=== PATIENT | male | born 1965 | race Caucasian/White ===

== ENCOUNTER 2016-09-29 04:20 | Inpatient (IN) | payer BC ==
[2016-09-29] MEDS ORDERED: SODIUM CHLORIDE 0.9% 1,000 ML IV STA (04:37)
[2016-09-29] MEDS ORDERED: MORPHINE SULFATE 4 MG/ML SYRINGE IV STA ×2 (04:37→06:28)
--- NOTE | 2016-09-29 04:48 | ED ---
Abdominal Pain HPI - General Chief Complaint: Abdominal Pain Stated Complaint: Abdominal pain Time Seen by Provider: 09/29/16 04:34 Source: patient, family Mode of arrival: wheelchair Limitations: no limitations - History of Present Illness Initial Comments: Patient presents with abdominal pain and syncopal episodes. He has a history of gallbladder stones. He has had a couple episodes of sick a be today. Patient denies any fever, chills, chest pain. He has no back pain. His abdominal pain is in the epigastric area it does radiate to the back. He has no neck pain or stiffness. He has no change in vision or hearing. He has taken no medication for the symptoms. He has no lightheadedness or dizziness. He has known focal weakness. - Related Data Home Medications Medication Instructions Recorded Confirmed Aspirin [Adult Low Dose Aspirin EC] 81 mg PO 09/29/16 Atorvastatin [Lipitor] mg PO DAILY 09/29/16 Allergies Allergy/AdvReac Type Severity Reaction Status Date / Time No Known Allergies Allergy Verified 09/29/16 04:34 Review of Systems ROS Statement: Those systems with pertinent positive or pertinent negative responses have been documented in the HPI. ROS Other: All systems not noted in ROS Statement are negative. Past Medical History Past Medical History: Hyperlipidemia Additional Past Medical History / Comment(s): gallstones, History of Any Multi-Drug Resistant Organisms: None Reported Past Surgical History: No Surgical Hx Reported Past Psychological History: No Psychological Hx Reported Smoking Status: Never smoker Past Alcohol Use History: None Reported Past Drug Use History: None Reported General Exam Limitations: no limitations General appearance: alert, in no apparent distress Head exam: Present: atraumatic, normocephalic, normal inspection Eye exam: Present: normal appearance, PERRL, EOMI. Absent: scleral icterus, conjunctival injection, periorbital swelling ENT exam: Present: normal exam, mucous membranes moist Neck exam: Present: normal inspection. Absent: tenderness, meningismus, lymphadenopathy Respiratory exam: Present: normal lung sounds bilaterally. Absent: respiratory distress, wheezes, rales, rhonchi, stridor Cardiovascular Exam: Present: regular rate, normal rhythm, normal heart sounds. Absent: systolic murmur, diastolic murmur, rubs, gallop, clicks GI/Abdominal exam: Present: soft, tenderness. Absent: distended, guarding, rebound, rigid Extremities exam: Present: normal inspection, full ROM, normal capillary refill. Absent: tenderness, pedal edema, joint swelling, calf tenderness Back exam: Present: normal inspection Neurological exam: Present: alert, oriented X3, CN II-XII intact Psychiatric exam: Present: normal affect, normal mood Skin exam: Present: warm, dry, intact, normal color. Absent: rash Course Vital Signs 09/29/16 04:28 Temperature 98.1 F Pulse Rate 59 L Respiratory 16 Rate Blood Pressure 111/68 O2 Sat by Pulse 95 Oximetry Medical Decision Making - Medical Decision Making Patient complains of abdominal pain. He also has had a syncopal episode. He has a cardiac history. He will be admitted to the hospital. 09/29/16 04:47 Twelve-lead EKG is obtained, interpreted by me showing ventricular rate 49 bpm, normal ID interval and QRS complexes, no ST elevation or depression, interpreted by me as sinus bradycardia. Disposition Clinical Impression: Syncope Disposition: ADMITTED IP TO THIS [facility] Condition: Fair Referrals: Joss Loyola MD [Primary Care Provider] - 1-2 days
[2016-09-29] MEDS ORDERED: NALOXONE 0.4 MG/ML 1 ML VIAL IV PRN (04:49)
[2016-09-29 05:15] LABS: Aty Lym Flag Slight; CH 33.5; HCT 40.2 % (39.0-53.0); HDW 2.61; HGB 14.6 gm/dL (13.0-17.5); MCHC 36.4 g/dL (31.0-37.0); MCV 90.8 fL (80.0-100.0); Mean Platelet Volume 6.5; RBC 4.43 m/uL (4.30-5.90); RDW 12.1 % (11.5-15.5); WBC 8.9 k/uL (3.8-10.6); WBC (Perox) 8.79
[2016-09-29 05:22] LABS: Partial Thromboplastin Time 22.9 sec (22.0-30.0); Prothrombin Time 10.5 sec (9.0-12.0)
[2016-09-29 05:26] LABS: ALT 42 U/L (21-72); AST 24 U/L (17-59); Alcohol <10 mg/dL; Alkaline Phosphatase 86 U/L (38-126); Amylase 82 U/L (30-110); Anion Gap 12 mmol/L; Blood Urea Nitrogen 13 mg/dL (9-20); Calcium 9.2 mg/dL (8.4-10.2); Carbon Dioxide 23 mmol/L (22-30); Chloride 107 mmol/L (98-107); Glucose 138 mg/dL (74-99); Non-African American GFR(MDRD) >60 (>60 ml/min/1.73 sqM); Potassium 3.7 mmol/L (3.5-5.1); Sodium 142 mmol/L (137-145); Total Bilirubin 0.4 mg/dL (0.2-1.3); Total Protein 6.6 g/dL (6.3-8.2)
[2016-09-29] MEDS: SODIUM CHLORIDE 0.9% 1,000 ML IV SCH (06:21)
--- NOTE | 2016-09-29 06:36 | CT ---
EXAM: CT Head Without Intravenous Contrast CLINICAL HISTORY: Reason: Pain TECHNIQUE: Axial computed tomography images of the head/brain without intravenous contrast. Sagittal and coronal reformats were reviewed. CTDI is 60.30 mGy and DLP is 1072.30 mGy-cm. This CT exam was performed using one or more of the following dose reduction techniques: automated exposure control, adjustment of the mA and/or kV according to patient size, and/or use of iterative reconstruction technique. COMPARISON: No relevant prior studies available. FINDINGS: Brain: 9.8 mm low-density lesion in the left basal ganglia may be a prominent CSF space or old lacunar infarct. No hemorrhage. No significant white matter disease. No edema. Ventricles: Unremarkable. No ventriculomegaly. Bones/joints: Unremarkable. No acute fracture. Soft tissues: Unremarkable. Sinuses: Mild left ethmoid sinus opacity. Mastoid air cells: Unremarkable as visualized. No mastoid effusion. IMPRESSION: 1. No acute intracranial abnormality. 2. Prominent CSF space versus old lacunar infarct left basal ganglia.
--- NOTE | 2016-09-29 06:45 | CT ---
EXAM: CT Abdomen and Pelvis With Intravenous Contrast CLINICAL HISTORY: Reason: abdominal pain TECHNIQUE: Axial computed tomography images of the abdomen and pelvis with intravenous contrast. CTDI is 7.80 mGy and DLP is 659.60 mGy-cm. This CT exam was performed using one or more of the following dose reduction techniques: automated exposure control, adjustment of the mA and/or kV according to patient size, and/or use of iterative reconstruction technique. Coronal and sagittal reformatted images were created and reviewed. COMPARISON: No relevant prior studies available. FINDINGS: Lower thorax: Mild bibasilar lung atelectasis. ABDOMEN: Liver: Hepatomegaly. Heterogeneous density liver may be fatty, correlate with LFTs for hepatitis. Gallbladder and bile ducts: Distended gallbladder with stones in the gallbladder neck. Prominent CBD at 9 mm. Pancreatic duct upper limits normal at 4 mm. Pancreas: 5 mm low-density lesion uncinate process of the pancreas. No CT evidence of pancreatitis. Spleen: Unremarkable. No splenomegaly. Adrenals: Unremarkable. No mass. Kidneys and ureters: Unremarkable. No solid mass. No hydronephrosis. Stomach and bowel: Mild air-fluid levels in the distal small bowel. Mild thickening of the colon may be due to underdistention, correlate for colitis. No bowel obstruction.. Distended stomach. Appendix: Normal appendix. PELVIS: Bladder: Thickening of the urinary bladder likely due to underdistention. Reproductive: Unremarkable as visualized. ABDOMEN and PELVIS: Intraperitoneal space: Unremarkable. No free air. No significant fluid collection. Bones/joints: No acute fracture. No dislocation. Soft tissues: Small bilateral fat-containing inguinal hernias. Vasculature: Unremarkable. No abdominal aortic aneurysm. Lymph nodes: Small retroperitoneal lymph nodes. IMPRESSION: 1. Cholelithiasis with slightly thickened gallbladder wall. Slightly prominent CBD. Consider right upper quadrant ultrasound. 2. Hepatomegaly. Heterogeneous liver may be fatty, correlate with LFTs. 3. 5 mm low-density lesion uncinate process of the pancreas. 4. Mild air-fluid level in the distal small bowel. Mild thickening of the ascending colon. Consider mild enteritis/colitis with ileus. No bowel obstruction. 5. Thickening of the urinary bladder likely due to underdistention.
[2016-09-29 07:32] LABS: Add Differential Manual Differential
[2016-09-29 07:36] LABS: Manual Review Performed; Myelocytes % 0.5 %; Nucleated Red Blood Cells 0 /100 WBC (0-0); RBC Morphology Normal; Total Cells Counted 200
[2016-09-29] MEDS ORDERED: ATORVASTATIN 20 MG TAB PO SCH (09:00)
[2016-09-29] MEDS ORDERED: ASPIRIN 81 MG CHEW PO SCH (09:00)
--- NOTE | 2016-09-29 09:06 | US ---
EXAMINATION TYPE: US abdomen limited DATE OF EXAM: 09/29/2016 COMPARISON: NONE CLINICAL HISTORY: ruq pain. EXAM MEASUREMENTS: Liver Length: 13.4 cm Gallbladder Wall: 0.5 cm CBD: 0.6 cm Right Kidney: 11.2 x 5.4 x 5.0 cm Patient has excessive midline bowel gas obscuring organs and making exam technically difficult and li mited. Pancreas: Obscured by bowel gas Liver: partially obscured by bowel gas, one intercostal window for right lobe, left lobe mostly obs cured Gallbladder: cholelithiasis, and thickened wall (5.1 mm wall thickness) Evidence for sonographic Sánchez's sign: patient very tender here CBD: not well visualized, upper limits of normal in size Right Kidney: wnl IMPRESSION: Sonographic findings consistent with cholelithiasis, and with the positive findings of ga llbladder wall thickening and positive sonographic Sánchez sign suggesting cholecystitis.
[2016-09-29] MEDS: MORPHINE SULFATE 4 MG/ML SYRINGE IVP PRN ×3 (10:18→23:24)
[2016-09-29 13:25] LABS: Appearance,Urine Clear (Clear); Bilirubin,Urine Negative (Negative); Glucose,Urine (UA) Negative (Negative); Ketones,Urine Negative (Negative); Leukocyte Esterase,Urine Negative (Negative); Nitrite,Urine Negative (Negative); Protein,Urine Negative (Negative); UA Billing (MACRO vs. MICRO) CHEM; Urobilinogen,Urine <2.0 mg/dL (<2.0)
[2016-09-29] MEDS: PANTOPRAZOLE 40 MG/10 ML VIAL IV SCH (16:24)
[2016-09-29] MEDS: LACTATED RINGERS 1,000 ML IV SCH ×2 (16:27→23:24)
[2016-09-29] MEDS: ENOXAPARIN 40 MG/0.4 ML SYRINGE SQ SCH ×2 (16:29→18:17)
--- NOTE | 2016-09-29 17:21 | P.GSCN ---
History of Present Illness Consult date: 09/29/16 Reason for Consult: Abdominal pain History of present illness: Patient came to the emergency room early this morning with complaints of abdominal pain. Abdominal pain is present in the midepigastric region. He does radiate to the back. Some nausea and vomiting. He has had episodes like this in the past but usually only last for one hour or so. No change in the color of his skin urine or stool. Labs fairly unremarkable. Ultrasound and CAT scan both show gallstones and evidence of cholecystitis. Review of Systems The patient denies any acute changes in his vision or hearing, no dysphagia or odynophagia, no chest pain or shortness of breath, no dysuria or hematuria, no headache, no runny nose, no rectal bleeding or melena, no unexplained weight loss Past Medical History Past Medical History: Hyperlipidemia Additional Past Medical History / Comment(s): Diagnosed with gallstones about 1 month ago-scheduled to see Dr. Oliver 11/02/16, bilateral tinnitis. History of Any Multi-Drug Resistant Organisms: None Reported Past Surgical History: No Surgical Hx Reported Past Anesthesia/Blood Transfusion Reactions: Unable to Obtain Additional Past Anesthesia/Blood Transfusion Reaction / Comm: Pt has never had general anesthesia or spinal anesthesia. Past Psychological History: No Psychological Hx Reported Additional Psychological History / Comment(s): Pt resides with his spouse. He is independent. Smoking Status: Former smoker Past Alcohol Use History: Occasional Additional Past Alcohol Use History / Comment(s): Pt started smoking as a teen and quit in 2008 Past Drug Use History: None Reported - Past Family History Father Family Medical History: Coronary Artery Disease (CAD) Additional Family Medical History / Comment(s): Father has cardiac stents. He is in his late 70's Mother Family Medical History: Congestive Heart Failure (CHF) Additional Family Medical History / Comment(s): Mother of CHF at the age of 54 yrs. Medications and Allergies Home Medications Medication Instructions Recorded Confirmed Type Aspirin [Adult Low Dose Aspirin EC] 81 mg PO HS 09/29/16 09/29/16 History Atorvastatin [Lipitor] 20 mg PO HS 09/29/16 09/29/16 History Allergies Allergy/AdvReac Type Severity Reaction Status Date / Time No Known Allergies Allergy Verified 09/29/16 04:34 Surgical - Exam Vital Signs Temp Pulse Resp BP Pulse Ox 98.1 F 59 L 16 111/68 95 09/29/16 04:28 09/29/16 04:28 09/29/16 04:28 09/29/16 04:28 09/29/16 04:28 Physical exam: General: Well-developed, well-nourished HEENT: Normocephalic, sclerae nonicteric Abdomen: Epigastric tenderness, nondistended Extremities: No edema Neuro: Alert and oriented Results - Labs 09/29/16 04:46 09/29/16 04:46 Abnormal Lab Results - Last 24 Hours (Table) 09/29/16 09/29/16 Range/Units 04:46 13:12 Glucose 138 H (74-99) mg/dL Ur Specific [place] 1.040 H (1.001-1.035) Diabetes panel 09/29/16 Range/Units 04:46 Sodium 142 (137-145) mmol/L Potassium 3.7 (3.5-5.1) mmol/L Chloride 107 (98-107) mmol/L Carbon Dioxide 23 (22-30) mmol/L BUN 13 (9-20) mg/dL Creatinine 0.90 (0.66-1.25) mg/dL Glucose 138 H (74-99) mg/dL Calcium 9.2 (8.4-10.2) mg/dL AST 24 (17-59) U/L ALT 42 (21-72) U/L Alkaline Phosphatase 86 (38-126) U/L Total Protein 6.6 (6.3-8.2) g/dL Albumin 4.2 (3.5-5.0) g/dL Calcium panel 09/29/16 Range/Units 04:46 Calcium 9.2 (8.4-10.2) mg/dL Albumin 4.2 (3.5-5.0) g/dL Pituitary panel 09/29/16 Range/Units 04:46 Sodium 142 (137-145) mmol/L Potassium 3.7 (3.5-5.1) mmol/L Chloride 107 (98-107) mmol/L Carbon Dioxide 23 (22-30) mmol/L BUN 13 (9-20) mg/dL Creatinine 0.90 (0.66-1.25) mg/dL Glucose 138 H (74-99) mg/dL Calcium 9.2 (8.4-10.2) mg/dL Adrenal panel 09/29/16 Range/Units 04:46 Sodium 142 (137-145) mmol/L Potassium 3.7 (3.5-5.1) mmol/L Chloride 107 (98-107) mmol/L Carbon Dioxide 23 (22-30) mmol/L BUN 13 (9-20) mg/dL Creatinine 0.90 (0.66-1.25) mg/dL Glucose 138 H (74-99) mg/dL Calcium 9.2 (8.4-10.2) mg/dL Total Bilirubin 0.4 (0.2-1.3) mg/dL AST 24 (17-59) U/L ALT 42 (21-72) U/L Alkaline Phosphatase 86 (38-126) U/L Total Protein 6.6 (6.3-8.2) g/dL Albumin 4.2 (3.5-5.0) g/dL Assessment and Plan (1) Acute cholecystitis Narrative/Plan: Clinical scenario discussed with the patient and his . Suspect acute calculus cholecystitis. We'll proceed with lap scopic cholecystectomy tomorrow. Risks of bleeding, infection, bile duct injury, biloma formation, postoperative diarrhea, conversion to an open procedure, hernia, and anesthesia- related complications were discussed. The patient understands and wishes to proceed. Status: Acute
--- NOTE | 2016-09-29 17:44 | HP ---
DATE OF ADMISSION: 09/29/2016 PRESENTING COMPLAINT: Abdominal pain. HISTORY OF PRESENTING COMPLAINT: A very pleasant 51-year-old patient of Dr. Loyola who has a known history of hypercholesterolemia and known history of gallstones. Patient for about 3 to 4 months has been having episodes of abdominal pain on and off. Pain is present in the epigastric area, goes to the back. This time early hours of the morning, the patient developed severe epigastric pain, nausea, vomiting, no fever. Still having pain, decided to come in. Ultrasound was confirmed again showing gallstones and gallbladder wall thickening. Patient was due to get surgery by Dr. Oliver. Patient's and son at the bedside. REVIEW OF SYSTEMS: CONSTITUTIONAL: Tired. HEENT: None. RESPIRATORY: None. CARDIOVASCULAR: None. GASTROINTESTINAL: As above. GENITOURINARY: None. MUSCULOSKELETAL: None. Dermatological: None. HEMATOLOGICAL: None. LYMPHATIC: None. PSYCHIATRY: None. NEUROLOGICAL: None. PAST MEDICAL HISTORY: Hyperlipidemia, gallstones. Tinnitus. PAST SURGICAL HISTORY: None. SOCIAL HISTORY: . Patient smoked for at least 27 years and then weaned off. 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 Does drink some alcohol on the weekends. FAMILY HISTORY: Father has coronary artery disease. HOME MEDICATIONS: 1. Lipitor 20 mg q.h.s. 2. Aspirin 81 mg p.o. q.h.s. ALLERGIES: None. On examination, temperature 98.1, pulse 59, respirations 16, blood pressure 111/68, pulse ox 95% on room air. GENERAL APPEARANCE: Average build, lying in bed, somewhat tired appearing. EYES: Pupils equal. Conjunctivae normal. HEENT: Oral cavity normal. NECK: JVD not raised. Mass not palpable. RESPIRATORY: Effort normal. LUNGS: Clear. CARDIOVASCULAR: First and second sounds normal. No edema. ABDOMEN: Upper abdomen tender. Sánchez's sign positive. Minimal guarding. LYMPHATIC: No lymph nodes palpable in neck or axillae. PSYCHIATRY: Alert and oriented x3. Mood and affect normal. NEUROLOGICAL: Pupils equal. Cranial nerves grossly intact. Power and sensation grossly intact. INVESTIGATIONS: White count 8.9, hemoglobin 14.6, Potassium 3.7, bilirubin normal. Troponin x2 negative. Abdominal ultrasound shows gallstones with positive findings of gallbladder wall thickening and positive Sánchez's sign. ASSESSMENT: 1. Acute gallstone with possible cholecystitis, severe symptomatic. 2. Hyperlipidemia. PLAN: Patient is on IV fluids, we will give Lovenox for DVT prophylaxis. Hold off patient aspirin. Dr. Oliver has been consulted. Patient will need cholecystectomy. Care discussed with patient and at the bedside. Questions answered. Copy to Dr. Loyola.
--- NOTE | 2016-09-29 19:43 | XR ---
EXAMINATION TYPE: XR chest 2V DATE OF EXAM: 09/29/2016 COMPARISON: NONE HISTORY: Right upper quadrant pain TECHNIQUE: Frontal and lateral views of the chest are obtained. FINDINGS: Heart and mediastinum are normal. Lungs are clear. Diaphragm is normal. Bony thorax is int act. There are no hilar masses. IMPRESSION: Normal chest
[2016-09-29] MEDS: ATORVASTATIN 20 MG TAB PO SCH (21:15)
[2016-09-29] MEDS: PIPERACILLIN-TAZOBACTAM 3.375 GM in DEXTROSE/WATER 1 50ML.BAG IVPB SCH (23:29)
[2016-09-30] MEDS: SODIUM CHLORIDE 0.9% 1,000 ML IV SCH (05:27)
[2016-09-30] MEDS: PANTOPRAZOLE 40 MG/10 ML VIAL IV SCH (08:15)
[2016-09-30] MEDS: ENOXAPARIN 40 MG/0.4 ML SYRINGE SQ SCH (08:15)
[2016-09-30] MEDS: PIPERACILLIN-TAZOBACTAM 3.375 GM in DEXTROSE/WATER 1 50ML.BAG IVPB SCH ×3 (08:15→23:25)
[2016-09-30] MEDS: LACTATED RINGERS 1,000 ML IV SCH ×2 (08:16→17:53)
[2016-09-30] MEDS: MORPHINE SULFATE 4 MG/ML SYRINGE IVP PRN (08:17)
[2016-09-30] MEDS ORDERED: ONDANSETRON 4 MG/2 ML VIAL IVP ONE (11:26)
[2016-09-30] MEDS ORDERED: IV FLUID CONTINUATION 550 ML IV ONE (11:26)
[2016-09-30] MEDS ORDERED: DEXAMETHASONE SOD PHOSPHATE 10 MG/ML 1 ML VIAL IV ONE (11:27)
[2016-09-30] MEDS ORDERED: MIDAZOLAM 2 MG/2 ML VIAL ONE (11:33)
[2016-09-30] MEDS ORDERED: NEOSTIGMINE 1 MG/ML 10 ML VIAL ONE (11:33)
[2016-09-30] MEDS ORDERED: PHENYLEPHRINE-0.9% NACL SYG 1 MG/10 ML SYRINGE ONE (11:33)
[2016-09-30] MEDS ORDERED: LIDOCAINE 1% INJ 10MG/ML (20 ML MDV) ONE (11:33)
[2016-09-30] MEDS ORDERED: SUCCINYLCHOLINE CHLORIDE 100 MG/5 ML SYR IV ONE (11:33)
[2016-09-30] MEDS ORDERED: PROPOFOL 10 MG/ML 20 ML VIAL IV ONE (11:33)
[2016-09-30] MEDS ORDERED: GLYCOPYRROLATE 0.2 MG/ML 2 ML VIAL ONE (11:33)
[2016-09-30] MEDS ORDERED: fentaNYL (PF) 50 MCG/ML 2 ML AMP ONE (11:33)
[2016-09-30] MEDS ORDERED: ePHEDrine 50 MG/ML 1 ML AMP ONE (11:33)
[2016-09-30] MEDS ORDERED: ROCURONIUM BROMIDE 10 MG/ML 10 ML VIAL IV ONE (11:33)
[2016-09-30] MEDS ORDERED: BUPIVACAIN-EPI 0.25%-1:200,000 30 ML VIAL IJ ONE ×2 (11:57)
[2016-09-30] MEDS ORDERED: LACTATED RINGERS 1,000 ML IV ONE (12:00)
--- NOTE | 2016-09-30 13:14 | P.OP ---
Date of Procedure: 09/30/16 Preoperative Diagnosis: Postoperative Diagnosis: Procedure(s) Performed: PREOPERATIVE DIAGNOSIS: Acute cholecystitis POSTOPERATIVE DIAGNOSIS: Same PROCEDURE: Laparoscopic cholecystectomy SURGEON: Melody EBL: Minimal see anesthesia record ANESTHESIA: Gen. COMPLICATIONS: None OPERATIVE PROCEDURE: The patient was brought and placed on the operating room table in the supine position. The patient was placed under general anesthesia at that time. The abdomen was prepped and draped in the usual sterile fashion. A small vertical infraumbilical incision was made. The fascia was grasped with the Haseeb forceps. The fascia was retracted anteriorly. The Veress needle was advanced into the peritoneal cavity. The saline drop test was normal. Insufflation took place up to 15 mmHg. A 5 mm optical trocar was advanced and the peritoneal cavity. 2 additional 5 mm trochars were placed in the right upper quadrant under direct visualization. A 10 mm trocar was advanced into the epigastric incision site. The gallbladder was distended with a thickened wall and evidence of edema throughout. The gallbladder was retracted superiorly and laterally. The peritoneum overlying the infundibulum was bluntly dissected. The patient's cystic duct was visualized. The junction between the cystic duct common and hepatic duct was identified. There was a stone present in the distal infundibulum that appear to be causing the episode. This was milked back proximally. No stones within the cystic duct proper were identified. The cystic duct itself was slightly distended and edematous. A 2-0 Ethibond stitch was used to ligate the cystic duct and tied down using the tie knot on the patient's side. A clip was then placed one on each side of the patient and the specimen. The cystic duct was then divided. The patient's cystic artery had multiple small branches that were individually clipped. The gallbladder was then removed from the liver bed using electrocautery. The gallbladder was then removed from the epigastric trocar site with an Endo Catch bag. The gallbladder fossa was irrigated with saline. There was no evidence of any bleeding or biliary drainage seen. The trochars were then removed. The fascia at the 10 millimeter site was closed using a Korey-Billy 0 Vicryl stitch. The skin at all 4 sites was closed using a 4-0 Monocryl stitch. At the end of this procedure the sponge and needle counts were correct. DISPOSITION: Stable to the recovery room Implants: Indications for Procedure: Operative Findings: Description of Procedure:
[2016-09-30 13:27] VITALS: RESP 16
[2016-09-30] MEDS: HYDROcodone/APAP 5-325MG 1 EACH TAB PO PRN ×2 (16:23→23:25)
--- NOTE | 2016-09-30 19:18 | PN ---
DATE OF SERVICE: 09/30/2016 PRESENTING COMPLAINT: Acute cholecystitis. INTERVAL HISTORY: This patient presented with abdominal pain found to have acute cholecystitis and gallstones and had surgical removal today. Lying in bed, some pain is present. Did tolerate a liquid diet. Did pass some flatus. and son are present too. I discussed the care earlier with Dr. Oliver. The patient's gallbladder is rather inflamed. Review of systems done for constitutional, cardiovascular, GI, pulmonary; relevant findings as above. Current medication are reviewed that include IV Zosyn. On examination, temperature 98.3, pulse 70, respiratory rate 16, blood pressure 117/73, pulse ox 94% on room air. GENERAL APPEARANCE: Sitting up, comfortable, tired -appearing. EYES: Pupils equal, conjunctivae normal. NECK: JVD not raised. Mass not palpable. RESPIRATORY: Effort normal. Lungs are clear. CARDIOVASCULAR: First and second sounds normal. No edema. ABDOMEN: Tender, soft. Liver and spleen not palpable. PSYCHIATRY: Alert and oriented x3. Mood and affect normal. INVESTIGATIONS: Accu-Cheks are noted. ASSESSMENT: 1. Acute cholecystitis, status post cholecystectomy 2. Gallstones removed as above. 3. Hyperlipidemia. PLAN: The patient is getting IV fluids, IV antibiotics. Diet is being advanced per surgery. Care was discussed with the patient and family at the bedside. Continue with IV Zosyn.
[2016-09-30] MEDS: ATORVASTATIN 20 MG TAB PO SCH (21:25)
[2016-10-01] MEDS: LACTATED RINGERS 1,000 ML IV SCH ×2 (01:38→07:49)
[2016-10-01] MEDS: HYDROcodone/APAP 5-325MG 1 EACH TAB PO PRN ×2 (07:22→13:41)
[2016-10-01] MEDS: PIPERACILLIN-TAZOBACTAM 3.375 GM in DEXTROSE/WATER 1 50ML.BAG IVPB SCH (07:27)
[2016-10-01] MEDS: ENOXAPARIN 40 MG/0.4 ML SYRINGE SQ SCH (07:27)
[2016-10-01 07:34] VITALS: BP 98/58; PULSE 62; TEMP 97.7
[2016-10-01 08:12] LABS: Basophils % (A) 0 %; CH 33.2; CHCM 35.3; Eosinophils % (A) 0 %; HCT 36.7 % (39.0-53.0); HDW 2.46; HGB 12.6 gm/dL (13.0-17.5); Luc # (Auto) 0.29; Luc % (Auto) 2; Lymphocytes # (A) 1.5 k/uL (1.0-4.8); Lymphocytes % (A) 12 %; MCH 32.5 pg (25.0-35.0); MCHC 34.5 g/dL (31.0-37.0); MCV 94.3 fL (80.0-100.0); Monocytes # (A) 0.7 k/uL (0-1.0); Monocytes % (A) 6 %; Neutrophils # (A) 9.9 k/uL (1.3-7.7); Neutrophils % (A) 79 %; RBC 3.89 m/uL (4.30-5.90); RDW 12.7 % (11.5-15.5); WBC 12.4 k/uL (3.8-10.6); WBC (Perox) 12.96
[2016-10-01 08:36] LABS: AST 23 U/L (17-59); Alkaline Phosphatase 62 U/L (38-126); Anion Gap 8 mmol/L; Blood Urea Nitrogen 9 mg/dL (9-20); Calcium 8.9 mg/dL (8.4-10.2); Carbon Dioxide 27 mmol/L (22-30); Chloride 106 mmol/L (98-107); Glucose 105 mg/dL (74-99); Non-African American GFR(MDRD) >60 (>60 ml/min/1.73 sqM); Sodium 141 mmol/L (137-145); Total Bilirubin 0.7 mg/dL (0.2-1.3); Total Protein 5.9 g/dL (6.3-8.2)
[2016-10-01 08:37] LABS: Potassium 3.6 mmol/L (3.5-5.1)
[2016-10-01 08:43] LABS: ALT 40 U/L (21-72)
--- NOTE | 2016-10-01 11:15 | P.DS ---
Providers Date of admission: 09/30/16 12:51 Expected date of discharge: 10/01/16 Attending physician: Emeterio Roque Consults: 09/29/16 15:55 Consult Physician Stat Consulting Provider: Jesus Oliver Consult Reason/Comments: ABDOMINAL PAIN Do you want consulting provider notified?: Yes Primary care physician: [facility] Course: FINAL DIAGNOSES: Acute gallstone with cholecystitis, severe symptomatic. Hyperlipidemia HOSPTIAL COURSE: This is a 51-year-old male who has a history of gallstones, developed severe epigastric pain nausea vomiting. Ultrasound confirmed gallstones and gallbladder wall thickening. Patient was admitted, consultation to surgical services, patient was taken to surgery for cholecystectomy. Today patient tolerating his diet, ambulatory in the morales, pain well-controlled. Stable for discharge PHYSICAL EXAM: CARDIOVASCULAR: First and second sound noted, no edema RESPIRATORY: Effort normal, lungs clear to auscultation. GI: Abdomen soft tender to palpation, 3 stab wounds, closed with skin glue intact no drainage. Liver and spleen not palpable distant bowel sounds Patient was seen and examined by nurse practitioner Deja Perry in all elements of the case discussed with attending Dr. Roque DISOPSITION: Home to the care of his family. Pertinent Studies: Ultrasound abdomen Findings consistent with cholelithiasis positive gallbladder bladder wall thickening, sonographic Sánchez sign suggesting cholecystitis. Procedures: Laparoscopic cholecystectomy Patient Condition at Discharge: Stable Plan - Discharge Summary New Discharge Prescriptions: New Hydrocodone/Acetaminophen [[place] 5-325] 1 - 2 each PO Q4HR PRN #30 tab PRN Reason: pain Amoxicillin/Potassium Clav [Augmentin 875-125 Tablet] 1 tab PO Q12HR #10 tab Continue Aspirin [Adult Low Dose Aspirin EC] 81 mg PO HS Atorvastatin [Lipitor] 20 mg PO HS Discharge Medication List Aspirin [Adult Low Dose Aspirin EC] 81 mg PO HS 09/29/16 [History] Atorvastatin [Lipitor] 20 mg PO HS 09/29/16 [History] Hydrocodone/Acetaminophen [[place] 5-325] 1 - 2 each PO Q4HR PRN #30 tab 09/30/16 [Rx] Amoxicillin/Potassium Clav [Augmentin 875-125 Tablet] 1 tab PO Q12HR #10 tab [Rx] Follow up Appointment(s)/Referral(s): Jesus Oliver MD [Medical Doctor] - 10/15/16 10:20 am Joss Loyola MD [Primary Care Provider] - 10/08/16 11:40 am Ambulatory/Diagnostic Orders: Comprehensive Metabolic Panel [LAB.AMB] Location: Determined By Patient Patient Instructions/Handouts: Hydrocodone/Acetaminophen (By mouth), Cholecystitis (GEN), Syncope (DC) Discharge Disposition: HOME SELF-CARE
[2016-10-01] MEDS: PANTOPRAZOLE 40 MG/10 ML VIAL IV SCH (11:46)
[2016-10-02] MEDS ORDERED: PANTOPRAZOLE 40 MG TABLET PO SCH (09:00)
--- NOTE | 2016-10-02 09:37 | DS ---
DATE OF ADMISSION: 09/30/2016 DATE OF DISCHARGE: 10/01/2016 ATTENDING NOTE: This patient was seen and examined by me earlier today. I reviewed the note of my nurse practitioner, ms. Perry. Reviewed and agreed with additional findings below. FINAL DIAGNOSES: 1. Acute gall stones with acute cholecystitis. 2. Hyperlipidemia. HOSPITAL COURSE: This patient presented with abdominal pain. Found to have significant cholecystitis. Cholecystectomy was carried out by Dr. Oliver. At the time of discharge, ( ). The patient is up and about. ON EXAM: ABDOMEN: Slight tenderness. The patient is being discharged on Augmentin and follow with Dr. Oliver. Care was discussed also with Dr. Oliver. Discharge planning more than 35 minutes.
== END 2016-10-01 14:50 | disposition home or self-care (01) | DRG 419 ==
LOC: EC 04:20 → 3OBS 04:47 → OBSVTOIN 09-30 12:51 → 5MS5E 09-30 13:39
PROVIDERS: ADMIT Hospitalist; ATTEND Hospitalist
PROC: 0FT44ZZ Resection of Gallbladder, Percutaneous Endoscopic Approach (ICD-10-PCS; principal; 2016-09-30 10:00)
DX: K80.00 Calculus of gallbladder with acute cholecystitis without obstruction (principal); R00.1 Bradycardia, unspecified; R55 Syncope and collapse; E78.5 Hyperlipidemia, unspecified; E78.00 Pure hypercholesterolemia, unspecified; R53.1 Weakness; Z87.891 Personal history of nicotine dependence; Z79.82 Long term (current) use of aspirin; Z79.899 Other long term (current) drug therapy; Z82.49 Family history of ischemic heart disease and other diseases of the circulatory system; Z86.69 Personal history of other diseases of the nervous system and sense organs
CPT/HCPCS: 36415; 70450; 71020; 74177; 76705; 80053; 80320; 81003; 82150; 83690; 84484; 85025; 85610; 85730; 88304; 93005; 96361; 96374; 96376; 99285

== ENCOUNTER → 2016-10-12 | Outpatient (CLI) | payer BC ==
[2016-10-12 07:44] LABS: Anion Gap 12 mmol/L; Blood Urea Nitrogen 12 mg/dL (9-20); Carbon Dioxide 26 mmol/L (22-30); Chloride 107 mmol/L (98-107); Glucose 102 mg/dL (74-99); Potassium 4.1 mmol/L (3.5-5.1); Sodium 145 mmol/L (137-145)
[2016-10-12 07:45] LABS: ALT 55 U/L (21-72); AST 27 U/L (17-59); Alkaline Phosphatase 77 U/L (38-126); Calcium 9.6 mg/dL (8.4-10.2); Non-African American GFR(MDRD) >60 (>60 ml/min/1.73 sqM); Total Bilirubin 0.7 mg/dL (0.2-1.3); Total Protein 7.2 g/dL (6.3-8.2)
== END | disposition home or self-care (01) ==
LOC: LABWHC1 06:58
PROVIDERS: ATTEND Nurse Practitioner Acute Care
DX: Z09 Encounter for follow-up examination after completed treatment for conditions other than malignant neoplasm (principal); Z90.49 Acquired absence of other specified parts of digestive tract
CPT/HCPCS: 36415; 80053

== ENCOUNTER 2018-06-27 10:15 | Observation (INO) | payer BC ==
[2018-06-27] MEDS ORDERED: SODIUM CHLORIDE 0.9% 1,000 ML IV STA (10:39)
[2018-06-27] MEDS ORDERED: ASPIRIN 81 MG PO STA (10:39)
--- NOTE | 2018-06-27 11:02 | ED ---
Chest Pain HPI - General Source: patient, RN notes reviewed, old records reviewed Mode of arrival: ambulatory Limitations: no limitations <Michelle Mota - Last Filed: 06/27/18 12:53> <Bill Coulter - Last Filed: 06/27/18 13:05> - General Chief Complaint: Chest Pain Stated Complaint: CHEST DISCOMFORT Time Seen by Provider: 06/27/18 10:28 - History of Present Illness Initial Comments: Patient is a 53-year-old male presents emergency department today with complaints of chest discomfort times one week. Patient reports that he has a positive family history of heart disease including multiple family members that it started in early had multiple stents. Patient states that he has had a dull ache that his chest occasionally radiating up the neck. He states he'll occasionally will have a sharp pain within the right side of his chest. He is a former smoker and quit 3 months ago. Patient has a history of hyperlipidemia. Patient states that he takes a daily baby aspirin. Patient states that the pain seems to be persistent and exertional. He denies any nausea or vomiting. Denies any headache dizziness or visual changes. (Michelle Mota) - Related Data Home Medications Medication Instructions Recorded Confirmed Aspirin [Adult Low Dose Aspirin EC] 81 mg PO DAILY 09/29/16 06/27/18 Atorvastatin [Lipitor] 20 mg PO HS 09/29/16 09/29/16 Naproxen Sodium 220 mg PO DAILY 06/27/18 06/27/18 Gary-3 Fatty Acids [Gary-3] 1,000 mg PO DAILY 06/27/18 06/27/18 Allergies Allergy/AdvReac Type Severity Reaction Status Date / Time No Known Allergies Allergy Verified 06/27/18 10:31 Review of Systems ROS Other: All systems not noted in ROS Statement are negative. <Michelle Mota - Last Filed: 06/27/18 12:53> ROS Other: All systems not noted in ROS Statement are negative. <Bill Coulter - Last Filed: 06/27/18 13:05> ROS Statement: Those systems with pertinent positive or pertinent negative responses have been documented in the HPI. EKG Findings - EKG Comments: EKG Findings:: EKG shows normal sinus rhythm normal ECG. Ventricular rate of 70 bpm. Verbal is 144 ms. QS duration 90 ms. QT QTc is 362/412 ms. No evidence of ST elevation. No evidence of T-wave inversion. <Michelle Mota - Last Filed: 06/27/18 12:53> Past Medical History Past Medical History: Hyperlipidemia Additional Past Medical History / Comment(s): Diagnosed with gallstones about 1 month ago-scheduled to see Dr. Oliver 11/02/16, bilateral tinnitis. History of Any Multi-Drug Resistant Organisms: None Reported Past Surgical History: No Surgical Hx Reported Past Anesthesia/Blood Transfusion Reactions: Unable to Obtain Additional Past Anesthesia/Blood Transfusion Reaction / Comment(s): Pt has never had general anesthesia or spinal anesthesia. Past Psychological History: No Psychological Hx Reported Additional Psychological History / Comment(s): Pt resides with his spouse. He is independent. Smoking Status: Former smoker Past Alcohol Use History: Occasional Additional Past Alcohol Use History / Comment(s): Pt started smoking as a teen and quit in 2008 Past Drug Use History: None Reported - Past Family History Father Family Medical History: Coronary Artery Disease (CAD) Additional Family Medical History / Comment(s): Father has cardiac stents. He is in his late 70's Mother Family Medical History: Congestive Heart Failure (CHF) Additional Family Medical History / Comment(s): Mother of CHF at the age of 54 yrs. <Michelle Mota - Last Filed: 06/27/18 12:53> General Exam Limitations: no limitations General appearance: alert, in no apparent distress Head exam: Present: atraumatic, normocephalic, normal inspection Eye exam: Present: normal appearance, PERRL, EOMI. Absent: scleral icterus, conjunctival injection, periorbital swelling ENT exam: Present: normal exam, mucous membranes moist Neck exam: Present: normal inspection. Absent: tenderness, meningismus, lymphadenopathy Respiratory exam: Present: normal lung sounds bilaterally. Absent: respiratory distress, wheezes, rales, rhonchi, stridor Cardiovascular Exam: Present: regular rate, normal rhythm, normal heart sounds. Absent: systolic murmur, diastolic murmur, rubs, gallop, clicks GI/Abdominal exam: Present: soft, normal bowel sounds. Absent: distended, tenderness, guarding, rebound, rigid Extremities exam: Present: normal inspection, full ROM, normal capillary refill. Absent: tenderness, pedal edema, joint swelling, calf tenderness Back exam: Present: normal inspection Neurological exam: Present: alert, oriented X3, CN II-XII intact Psychiatric exam: Present: normal affect, normal mood <Michelle Mota - Last Filed: 06/27/18 12:53> - General Exam Comments Initial Comments: Pleasant 53-year-old male. Alert and oriented 3. No significant distress. (Michelle Mota) Course <Bill Coulter - Last Filed: 06/27/18 13:05> Vital Signs 06/27/18 10:17 Temperature 97.5 F L Pulse Rate 88 Respiratory 18 Rate Blood Pressure 137/90 O2 Sat by Pulse 100 Oximetry - Reevaluation(s) Reevaluation #1: 06/27/18 13:05 Case was discussed with practitioner Nakul. Chart reviewed. Case also discussed with Dr. Roque, who will admit covering for Dr. Loyola. (Bill Coulter) Chest Pain MDM <Michelle Mota - Last Filed: 06/27/18 12:53> - MDM Is a 53-year-old male, smoker, family history of heart disease presents today with one week of persistent chest pain. This time his EKGs name of any acute process. The patient's troponin lab work was otherwise unremarkable. Patient has multiple risk factors including hyperlipidemia family history and history of smoking. Discussed admitting the Patient for consult cardiology. 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 Patient will be admitted for urology consult. Patient will be nothing by mouth after midnight. (Michelle Mota) Disposition Is patient prescribed a controlled substance at d/c from ED?: No Time of Disposition: 12:55 <Michelle Mota - Last Filed: 06/27/18 12:53> <Bill Coulter - Last Filed: 06/27/18 13:05> Clinical Impression: Chest pain Disposition: ADMITTED IP TO THIS HOSP Condition: Good Instructions (If sedation given, give patient instructions): Chest Pain (ED) Referrals: Joss Loyola MD [Primary Care Provider] - 1-2 days
[2018-06-27 11:08] LABS: Basophils # (A) 0.1 k/uL (0-0.2); Basophils % (A) 2 %; Eosinophils # (A) 0.3 k/uL (0-0.7); Eosinophils % (A) 4 %; HCT 44.4 % (39.0-53.0); HGB 15.3 gm/dL (13.0-17.5); Lymphocytes % (A) 31 %; MCHC 34.3 g/dL (31.0-37.0); MCV 93.1 fL (80.0-100.0); Monocytes # (A) 0.4 k/uL (0-1.0); Monocytes % (A) 7 %; Neutrophils # (A) 3.3 k/uL (1.3-7.7); Neutrophils % (A) 52 %; Platelet Count 274 k/uL (150-450); RBC 4.77 m/uL (4.30-5.90); RDW 12.5 % (11.5-15.5); WBC 6.3 k/uL (3.8-10.6)
[2018-06-27 11:16] LABS: ALT 46 U/L (21-72); AST 25 U/L (17-59); Albumin 4.1 g/dL (3.5-5.0); Alkaline Phosphatase 61 U/L (38-126); Anion Gap 6 mmol/L; Blood Urea Nitrogen 14 mg/dL (9-20); Calcium 9.4 mg/dL (8.4-10.2); Carbon Dioxide 26 mmol/L (22-30); Chloride 109 mmol/L (98-107); Glucose 95 mg/dL (74-99); Magnesium 2.1 mg/dL (1.6-2.3); Potassium 4.5 mmol/L (3.5-5.1); Sodium 141 mmol/L (137-145); Total Bilirubin 0.5 mg/dL (0.2-1.3); Total Protein 6.8 g/dL (6.3-8.2)
--- NOTE | 2018-06-27 11:24 | XR ---
EXAMINATION TYPE: XR chest 2V DATE OF EXAM: 06/27/2018 COMPARISON: 09/29/16 HISTORY: Shortness of breath TECHNIQUE: Frontal and lateral views of the chest are obtained. FINDINGS: Scattered senescent parenchymal changes noted. Hyperinflation compatible with COPD. No evidence for infiltrate. No evidence for atelectasis. Heart size is stable. Mediastinal structures are stable and grossly unremarkable. No evidence for hilar prominence. Degenerative changes dorsal spine. IMPRESSION: 1. No evidence for acute pulmonary disease.
[2018-06-27 11:28] LABS: INR 0.9 (<1.2); Partial Thromboplastin Time 24.2 sec (22.0-30.0); Prothrombin Time 9.8 sec (9.0-12.0)
[2018-06-27] MEDS ORDERED: NITROGLYCERIN SL TABS 0.4 MG TAB SUBLINGUAL PRN (12:56)
[2018-06-27] MEDS ORDERED: ATORVASTATIN 20 MG TAB PO SCH (21:00)
--- NOTE | 2018-06-27 23:54 | HP ---
HISTORY AND PHYSICAL DATE OF ADMISSION: 06/27/2018. DATE OF SERVICE: 06/27/2018. PRESENTING COMPLAINT: Chest tightness. HISTORY OF PRESENTING COMPLAINT: A very pleasant 53-year-old patient of Dr. oLyola who is actually in good health, for the last 1 week has been having chest tightness off and on. Not related to activity, at rest, sometimes the tightness will go into the throat. There is no dizziness. No perspiration. Does feel a bit more tired than before. No respiratory symptoms. Patient is rather active. Denies any respiratory symptoms. Because of a strong family history decided to come in. The patient has been noticing increasing heartburn recently with no change in food habits. REVIEW OF SYSTEMS: CONSTITUTIONAL: None. HEENT: None. RESPIRATORY: As above. CARDIOVASCULAR: As above. GASTROINTESTINAL: None. GENITOURINARY: None. MUSCULOSKELETAL: None. LYMPHATIC: None. PSYCHIATRY: None. NEUROLOGIC: None. PAST MEDICAL HISTORY: Hyperlipidemia, tinnitus. PAST SURGICAL HISTORY: Cholecystectomy, tonsillectomy. SOCIAL HISTORY: The patient may rarely smoke, if any. For most practical purposes, nonsmoker. Drinks alcohol rarely. . 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 FAMILY HISTORY: Patient's mother, father, and brother all have heart disease. HOME MEDICATIONS: 1. [place]-3, 1000 mg a day. 2. Naproxen 220 mg a day. 3. Aspirin 81 mg a day. 4. Lipitor 20 mg at bedtime. ALLERGIES: None. PHYSICAL EXAMINATION: VITAL SIGNS: Temperature 97.8, pulse 54, respirations 16, blood pressure 108/73, pulse ox 96 percent room. GENERAL APPEARANCE: Well built, lying in bed, awake. EYES: Pupils equal. Conjunctivae normal. HEENT: External appearance of nose and ears normal. Oral cavity normal. NECK: JVD not raised. Mass not palpable. Respiratory effort normal. LUNGS: Fair entry entry. CARDIOVASCULAR: 1st and 2nd heart sounds normal. No edema. ABDOMEN: Soft, nontender. Liver and spleen not palpable. LYMPHATIC: No lymph nodes palpable in the neck or axillae. PSYCHIATRY: Alert and oriented x3. Mood and affect normal. NEUROLOGIC: Pupils equal. Cranial nerves grossly intact. Power and sensation grossly intact. INVESTIGATIONS: White count 6.3, hemoglobin 15.3, potassium 4.5, BUN and creatinine normal. Troponin times two negative. EKG tracing personally reviewed by me shows normal sinus rhythm. Chest x-ray film personally reviewed by me shows lung walsh to be clear. ASSESSMENT: 1. This patient presents with chest tightness with some increasing recent heartburn. The patient is otherwise rather active. The patient's risk factors include very strong family history. 2. Hyperlipidemia. 3. Chronic tinnitus. 4. Gastroesophageal reflux disease. PLAN: Serial cardiac enzymes in place. The patient will need a stress test at least. The patient, in the meantime, has been started on aspirin. Cardiology was consulted. Care was discussed with the patient. MMODL / IJN: [id number] /
[2018-06-28 05:49] LABS: Cholesterol 238 mg/dL (<200); HDL Cholesterol 29 mg/dL (40-60); LDL Cholesterol,Calculated 130 mg/dL (0-99); Triglycerides 397 mg/dL (<150)
--- NOTE | 2018-06-28 08:25 | CONS ---
CONSULTATION Mr. Meraz is a 53-year-old male with history of hyperlipidemia and a family history of premature coronary artery disease who presented with symptoms of chest discomfort. His discomfort has been going on and off for the last week at times lasting for a few hours, not exertional in pattern with some radiation to the neck, but no association with dyspnea. He denies any dizziness or palpitation. He is average in his exercise tolerance and he has no exertional chest discomfort. There is no prior history of cardiac disease. He denies any PND, orthopnea, or peripheral edema. No dizziness, palpitation, or syncope. His coronary risk factors are remarkable for hyperlipidemia and a premature history of coronary artery disease. He had a prior history of smoking, but he has not been smoking in a long time. He has no history of diabetes or hypertension. MEDICATION: His medications include omega-3 fish oil, Naprosyn on a p.r.n. basis, aspirin 81 mg daily, Lipitor 20 mg daily. REVIEW OF SYSTEMS: RESPIRATORY SYSTEM: He has no documented history of asthma, emphysema or bronchitis. GI SYSTEM: No recent GI bleed. No peptic ulcer disease. SYSTEM: No dysuria or hematuria. NERVOUS SYSTEM: No stroke or seizure. PHYSICAL EXAMINATION: He is a 53-year-old male, alert, oriented, in no apparent distress. Blood pressure 101/60 with the heart rate in the 60s. HEAD: Normocephalic. EYES: Sclerae anicteric. NECK: Good carotid upstroke. No bruit. No jugular venous distention. LUNGS: Clear to auscultation. HEART: Regular rate and rhythm. S1, S2. No S3. No S4. No murmur or rub. ABDOMEN: Soft, nontender. Positive bowel sounds. No organomegaly. EXTREMITIES: No edema. Intact distal pulses. Lab data revealed troponin less than 0.012 for 3 samples. Cholesterol 238 with an LDL of 130. BUN and creatinine 14 and 0.89. Potassium 4.5. Hemoglobin of 15.3. EKG revealed a sinus mechanism with RSR prime with no acute ST-segment changes. Chest x-ray revealed no acute infiltrate. IMPRESSION: 1. Chest discomfort has atypical features for ischemic heart disease. 2. Hyperlipidemia. 3. Family history of premature coronary artery disease. RECOMMENDATION: I would recommend to proceed with a stress echocardiogram to further assess his status. If there is no evidence of inducible ischemia, then no further cardiac workup will be needed. Thank you for this consult. We will follow with you. MMODL / IJN: [id number] /
[2018-06-28] MEDS ORDERED: ASPIRIN 325 MG TAB PO SCH (09:00)
[2018-06-28] MEDS ORDERED: NON-FORMULARY DRUG (Omega-3 Fatty Acids [Omega-3] 1,000 MG) PO SCH (09:00)
[2018-06-28] MEDS ORDERED: ASPIRIN 81 MG PO SCH (09:00)
[2018-06-28] MEDS ORDERED: NAPROXEN 250 MG TAB PO SCH (09:00)
[2018-06-28 11:40] VITALS: BP 102/67; PULSE 59; RESP 18; TEMP 98.1
--- NOTE | 2018-06-28 11:44 | ECHOF ---
Referral Reason:cp MEASUREMENTS -------- HEIGHT: 182.9 cm WEIGHT: 88.5 kg BP: 116/76 RVIDd: 3.0 cm (< 3.3) IVSd: 1.0 cm (0.6 - 1.1) LVIDd: 5.0 cm (3.9 - 5.3) LVPWd: 1.0 cm (0.6 - 1.1) IVSs: 1.4 cm LVIDs: 3.6 cm LVPWs: 1.6 cm LA Diam: 3.1 cm (2.7 - 3.8) LAESV Index (A-L): 21.87 ml/m Ao Diam: 3.5 cm (2.0 - 3.7) AV Cusp: 2.4 cm (1.5 - 2.6) MV EXCURSION: 18.330 mm (> 18.000) MV EF SLOPE: 113 mm/s (70 - 150) EPSS: 0.6 cm MV E Alex: 0.67 m/s MV DecT: 236 ms MV A Alex: 0.46 m/s MV E/A Ratio: 1.46 FINDINGS -------- Sinus rhythm. This was a technically good study. The left ventricular size is normal. Left ventricular wall thickness is normal. Overall left vent ricular systolic function is normal with, an EF between 55 - 60 %. The right ventricle is normal in size. Normal LA size by volume 22+/-6 ml/m2. The right atrium is normal in size. The aortic valve is trileaflet, and appears structurally normal. No aortic stenosis or regurgitation. The mitral valve is normal. There is trace mitral regurgitation. Trace tricuspid regurgitation present. There is no pulmonic regurgitation present. The aortic root size is normal. Normal inferior vena cava with normal inspiratory collapse consistent with estimated right atrial pre ssure of 5 mmHg. There is no pericardial effusion. CONCLUSIONS -------- 1. Sinus rhythm. 2. This was a technically good study. 3. The left ventricular size is normal. 4. Left ventricular wall thickness is normal. 5. Overall left ventricular systolic function is normal with, an EF between 55 - 60 %. 6. Normal LA size by volume 22+/-6 ml/m2. 7. The aortic valve is trileaflet, and appears structurally normal. No aortic stenosis or regurgitati on. 8. There is trace mitral regurgitation. 9. Trace tricuspid regurgitation present. 10. There is no pulmonic regurgitation present. 11. The aortic root size is normal. 12. Normal inferior vena cava with normal inspiratory collapse consistent with estimated right atrial pressure of 5 mmHg. 13. There is no pericardial effusion. MEDICAL RECORDS SPECIALIST: Esperanza Aguirre RDCS
--- NOTE | 2018-06-28 13:37 | ECHOS ---
STRESS ECHOCARDIOGRAM DATE OF SERVICE: 06/28/2018 INDICATIONS: Chest pain. MEDICATIONS: Aspirin, atorvastatin, omega 3, naproxen. BASELINE HEART RATE: 58 BASELINE BLOOD PRESSURE: 131/60 MAXIMUM HEART RATE: 159 MAXIMUM BLOOD PRESSURE: 158/63 85% MPHR: 142 100% MPHR: 167 METS: 10.5 MAXIMUM STAGE REACHED: III TOTAL EXERCISE TIME: 9 minutes CLINICAL INFORMATION: Baseline rhythm is sinus mechanism, rate of 58, normal axis, normal intervals. Baseline blood pressure 131/60 mmHg. Patient exercised on Doyle protocol for 9 minutes reaching peak rate of 159 beats per minute which is equal to 95% maximum predicted heart rate. Peak blood pressure 158/63 mmHg. Test was terminated secondary to fatigue. There was no chest pain. Electrocardiograph monitoring revealed no evidence of diagnostic ischemic ST deviation. Baseline echocardiogram revealed normal wall thickening and motion. At peak exercise, there was normal wall motion augmentation with no hypokinesis or dyskinesis. CONCLUSION: 1. Good exercise tolerance with normal electrocardiographic response to exercise. 2. Normal stress echocardiogram with no evidence of stress induced ischemia. MMODL / IJN: [id number] /
[2018-06-28] MEDS ORDERED: ATORVASTATIN 40 MG TAB PO SCH (21:00)
--- NOTE | 2018-07-01 06:22 | DS ---
DISCHARGE SUMMARY DATE OF ADMISSION: 06/27/2018 DATE OF DISCHARGE: 06/28/2018 FINAL DIAGNOSES: 1. Anterior chest wall pain probably from reflux. 2. Hyperlipidemia. 3. Chronic tinnitus. 4. Gastroesophageal reflux disease. HOSPITAL COURSE: The patient presented with some chest tightness, also had recently increase in reflux symptoms. The patient did undergo 2-D echocardiogram showed preserved LV function and a stress echocardiogram that was negative. The patient was cleared by Cardiology. CONSULTATION: Dr. Lion from Cardiology. PHYSICAL EXAMINATION: On examination, temperature 98.1, pulse 59, respiration 18, blood pressure 102/67, pulse ox 95% on room air. Lungs are clear. CARDIOVASCULAR: First and second sounds normal. INVESTIGATION: Troponin is negative. LDL 130. DISCHARGE MEDICATIONS: 1. Aspirin 81 mg a day. 2. Lipitor 20 mg at bedtime. 3. Naproxen 220 mg p.o. daily. 4. [place]-3 1000 mg p.o. daily. 5. Pepcid 20 mg b.i.d. Follow up with Dr. Lion in 2 weeks. Follow up with Dr. Loyola in one week. MMODL / IJN: [id number] /
== END 2018-06-28 14:48 | disposition home or self-care (01) ==
LOC: EC 10:15 → 1SOBS 13:05
PROVIDERS: ADMIT Hospitalist; ATTEND Hospitalist
DX: R07.89 Other chest pain (principal); R12 Heartburn; E78.5 Hyperlipidemia, unspecified; K21.9 Gastro-esophageal reflux disease without esophagitis; H93.13 Tinnitus, bilateral; K80.20 Calculus of gallbladder without cholecystitis without obstruction; Z87.891 Personal history of nicotine dependence; Z79.82 Long term (current) use of aspirin; Z79.899 Other long term (current) drug therapy; Z79.1 Long term (current) use of non-steroidal anti-inflammatories (NSAID); Z90.49 Acquired absence of other specified parts of digestive tract; Z82.49 Family history of ischemic heart disease and other diseases of the circulatory system
CPT/HCPCS: 36415; 71046; 80053; 80061; 83735; 84484; 85025; 85610; 85730; 93005; 93306; 93351; 94760; 96360; 99285

== ENCOUNTER → 2018-09-06 | Outpatient (CLI) | payer BC ==
--- NOTE | 2018-09-06 18:12 | CONS ---
CONSULTATION REASON FOR CONSULTATION: This is a consultation note for sleep apnea. Alvaro is 53, [facility] due to concerns of sleep apnea. He snores loud. He has been noted to quit breathing. The patient goes to bed around 10 p.m., wakes up at 6 a.m. in the morning. He sleeps around 8 hours. No major hypersomnia or sleepiness during the day. Comorbidities include hyperlipidemia. He has gained around 12-15 pounds over the past 1 year. No other complaints otherwise for now. No tiredness or sleepiness. No major hypersomnia or sleepiness. No history of any motor vehicle accident because of feeling drowsy or sleep. Imperial Score is at 9. PAST MEDICAL HISTORY: Hyperlipidemia and acid reflux. PAST SURGICAL HISTORY: Includes cholecystectomy and tonsillectomy. DRUG ALLERGIES: Not known. OUTPATIENT MEDICATION LIST: Includes atorvastatin and Pepcid. SOCIAL HISTORY: Patient is a nonsmoker. No history of alcohol. No history of IV drugs. FAMILY HISTORY: Noncontributory. Negative for any significant sleep apnea. The patient is an ex smoker. No history of alcohol. No history of IV drugs. REVIEW OF SYSTEMS: Fourteen-point review of system was done. No excessive hypersomnia or sleepiness. No choking or gasping sensation. No insomnia. No nocturia. No grinding of the teeth. No sleepwalking. No anxiety or panic attacks. No palpitation. No PTSD. No bipolar disorder. No heartburn. No anxiety. No irritability. No difficulties with concentration or memory. PHYSICAL EXAMINATION: VITAL SIGNS: BP is 117/78, pulse 92, respirations 16, temperature 97.4, saturation 97% on room air. Neck size 15.5 inches. Height is 5 feet 11 inches, weight 193, and BMI 26.9. GENERAL APPEARANCE: Calm and comfortable. HEENT: Head is atraumatic, normocephalic. NECK: Supple. No JVD. No goiter or neck masses. Mallampati class III. LUNGS: Clear to auscultation. HEART: Sounds regular rate and rhythm. Normal S1, S2. No S3. No murmurs. ABDOMEN: Soft, nontender. No organomegaly. EXTREMITIES: No edema. No cyanosis or clubbing. OCCUPATION HISTORY: Retired [employer]. 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 IMPRESSION: 1. Loud snoring and witnessed apneas. The patient's son Yusuf is an ICU nurse. His Marion is a medical nurse and both of them have noted that the patient has quit breathing and has loud snoring. Nevertheless, the patient is not having any significant hypersomnia or sleepiness. He is coming in for further investigation. 2. Hyperlipidemia. 3. Acid reflux. PLAN: 1. We will set up this patient for a home sleep study. 2. We will review the study when it is completed and decided if there is any need for any further treatment. 3. Encourage weight loss. 4. Implement good sleep hygiene measures. 5. We will continue to follow. MMODL / IJN: [id number] /
== END | disposition home or self-care (01) ==
LOC: SLEEP 13:50
PROVIDERS: ATTEND Internal Medicine Critical Care Medicine
DX: R06.83 Snoring (principal); R06.81 Apnea, not elsewhere classified; E78.5 Hyperlipidemia, unspecified; K21.9 Gastro-esophageal reflux disease without esophagitis; Z79.899 Other long term (current) drug therapy
CPT/HCPCS: 99211

== ENCOUNTER 2020-11-17 19:19 | Observation (INO) | payer BC ==
[2020-11-17] MEDS ORDERED: IBUPROFEN 600 MG TAB PO STA (19:38)
[2020-11-17] MEDS ORDERED: ACETAMINOPHEN TAB 500 MG TAB PO STA (19:38)
--- NOTE | 2020-11-17 19:43 | ED ---
General Adult HPI - General Chief complaint: Altered Mental Status Stated complaint: Swollen Face/Neck Time Seen by Provider: 11/17/20 19:28 Source: patient, family, RN notes reviewed Mode of arrival: ambulatory Limitations: no limitations - History of Present Illness Initial comments: Patient is a pleasant 55-year-old male presenting to the emergency Department with with concerns for fever and fatigue. Majority of history is taken from the . Onset of symptoms was 2 days ago and has been steady. Patient has been somewhat restless sleep. Patient has been sleeping significantly over the past couple of days. Patient has been fatigued. There has been some redness and swelling noticed her left ear. Patient states only mild discomfort there. Patient does not feel confused. No neck pain. No cough or dyspnea. No abdominal pain. - Related Data Home Medications Medication Instructions Recorded Confirmed Aspirin [Adult Low Dose Aspirin EC] 81 mg PO HS 09/29/16 11/17/20 Atorvastatin [Lipitor] 20 mg PO HS 09/29/16 11/17/20 Allergies Allergy/AdvReac Type Severity Reaction Status Date / Time No Known Allergies Allergy Verified 11/17/20 20:07 Review of Systems ROS Statement: Those systems with pertinent positive or pertinent negative responses have been documented in the HPI. ROS Other: All systems not noted in ROS Statement are negative. Constitutional: Reports: fever, chills Eyes: Denies: eye pain ENT: Reports: as per HPI Respiratory: Denies: cough Cardiovascular: Denies: chest pain Endocrine: Reports: fatigue Gastrointestinal: Denies: abdominal pain Genitourinary: Denies: dysuria Musculoskeletal: Denies: joint swelling Skin: Reports: as per HPI, rash Neurological: Denies: headache Past Medical History Past Medical History: Hyperlipidemia Additional Past Medical History / Comment(s): Bilateral tinnitis. History of Any Multi-Drug Resistant Organisms: None Reported Past Surgical History: Cholecystectomy, Tonsillectomy Past Anesthesia/Blood Transfusion Reactions: Unable to Obtain Additional Past Anesthesia/Blood Transfusion Reaction / Comment(s): Pt has never had general anesthesia or spinal anesthesia. Past Psychological History: No Psychological Hx Reported Smoking Status: Light tobacco smoker Past Alcohol Use History: Occasional Past Drug Use History: None Reported - Past Family History Father Family Medical History: Coronary Artery Disease (CAD) Additional Family Medical History / Comment(s): Father has cardiac stents. He is 79yrs old. Mother Family Medical History: Congestive Heart Failure (CHF) Additional Family Medical History / Comment(s): Mother of CHF at the age of 54 yrs. General Exam Limitations: no limitations General appearance: in no apparent distress, other (Patient sleeping and easily arousable to voice.) Head exam: Present: atraumatic, normocephalic Eye exam: Present: normal appearance, PERRL ENT exam: Present: normal oropharynx, TM's normal bilaterally, other (Left ear with mild to moderate erythema and swelling extending anteriorly 2-3 cm. There is some tenderness of the mastoid as well.) Neck exam: Present: normal inspection. Absent: tenderness, meningismus Respiratory exam: Present: normal lung sounds bilaterally Cardiovascular Exam: Present: regular rate, normal rhythm GI/Abdominal exam: Present: soft. Absent: tenderness Extremities exam: Present: normal inspection Neurological exam: Present: oriented X3. Absent: motor sensory deficit Psychiatric exam: Present: normal affect, normal mood Skin exam: Present: normal color Course Vital Signs 11/17/20 11/17/20 11/17/20 19:21 20:46 21:11 Temperature 101.8 F H 100.5 F H Pulse Rate 95 87 89 Respiratory 20 16 16 Rate Blood Pressure 109/72 103/67 O2 Sat by Pulse 98 96 97 Oximetry - Reevaluation(s) Reevaluation #1: 11/17/20 21:24 Patient does meet sepsis criteria diagnosed at 2119. Blood culture and lactic acid have been ordered. IV antibiotics will be ordered. EKG Findings - EKG Comments: EKG Findings:: EKG shows normal sinus rhythm 3-89. W[place] 136. QRS 94. QT 346. QTc 420. Normal axis. Normal QRS. No acute ST change. Medical Decision Making - Medical Decision Making Patient reevaluated and improved with Tylenol and Motrin. Patient and family updated on results and plan. Case was discussed with Dr. cabrera, who will admit covering Dr. Whelan. - Lab Data Result diagrams: 11/17/20 19:49 11/17/20 19:49 Lab Results 11/17/20 11/17/20 11/17/20 Range/Units 19:49 19:49 19:49 WBC 15.7 H (3.8-10.6) k/uL RBC 4.45 (4.30-5.90) m/uL Hgb 14.8 (13.0-17.5) gm/dL Hct 42.3 (39.0-53.0) % MCV 95.0 (80.0-100.0) fL MCH 33.3 (25.0-35.0) pg MCHC 35.1 (31.0-37.0) g/dL RDW 12.8 (11.5-15.5) % Plt Count 279 (150-450) k/uL MPV 6.8 Neutrophils % 84 % Lymphocytes % 7 % Monocytes % 5 % Eosinophils % 0 % Basophils % 1 % Neutrophils # 13.1 H (1.3-7.7) k/uL Lymphocytes # 1.1 (1.0-4.8) k/uL Monocytes # 0.7 (0-1.0) k/uL Eosinophils # 0.1 (0-0.7) k/uL Basophils # 0.1 (0-0.2) k/uL PT 10.1 (9.0-12.0) sec INR 0.9 (<1.2) APTT 24.9 (22.0-30.0) sec Sodium 135 L (137-145) mmol/L Potassium 4.0 (3.5-5.1) mmol/L Chloride 106 (98-107) mmol/L Carbon Dioxide 22 (22-30) mmol/L Anion Gap 7 mmol/L BUN 16 (9-20) mg/dL Creatinine 0.86 (0.66-1.25) mg/dL Est GFR (CKD-EPI)AfAm >90 (>60 ml/min/1.73 sqM) Est GFR (CKD-EPI)NonAf >90 (>60 ml/min/1.73 sqM) Glucose 115 H (74-99) mg/dL Plasma Lactic Acid Chava (0.7-2.0) mmol/L Calcium 9.3 (8.4-10.2) mg/dL Total Bilirubin 0.4 (0.2-1.3) mg/dL AST 28 (17-59) U/L ALT 31 (4-49) U/L Alkaline Phosphatase 90 (38-126) U/L Total Protein 7.0 (6.3-8.2) g/dL Albumin 4.2 (3.5-5.0) g/dL 11/17/20 Range/Units 19:49 WBC (3.8-10.6) k/uL RBC (4.30-5.90) m/uL Hgb (13.0-17.5) gm/dL Hct (39.0-53.0) % MCV (80.0-100.0) fL MCH (25.0-35.0) pg MCHC (31.0-37.0) g/dL RDW (11.5-15.5) % Plt Count (150-450) k/uL MPV Neutrophils % % Lymphocytes % % Monocytes % % Eosinophils % % Basophils % % Neutrophils # (1.3-7.7) k/uL Lymphocytes # (1.0-4.8) k/uL Monocytes # (0-1.0) k/uL Eosinophils # (0-0.7) k/uL Basophils # (0-0.2) k/uL PT (9.0-12.0) sec INR (<1.2) APTT (22.0-30.0) sec Sodium (137-145) mmol/L Potassium (3.5-5.1) mmol/L Chloride (98-107) mmol/L Carbon Dioxide (22-30) mmol/L Anion Gap mmol/L BUN (9-20) mg/dL Creatinine (0.66-1.25) mg/dL Est GFR (CKD-EPI)AfAm (>60 ml/min/1.73 sqM) Est GFR (CKD-EPI)NonAf (>60 ml/min/1.73 sqM) Glucose (74-99) mg/dL Plasma Lactic Acid Chava 1.0 (0.7-2.0) mmol/L Calcium (8.4-10.2) mg/dL Total Bilirubin (0.2-1.3) mg/dL AST (17-59) U/L ALT (4-49) U/L Alkaline Phosphatase (38-126) U/L Total Protein (6.3-8.2) g/dL Albumin (3.5-5.0) g/dL - Radiology Data Radiology results: report reviewed (Computed tomography scan shows thickened rene external auditory canal. Mildly hyperenhancing left parotid gland overlying soft tissue swelling and node.), image reviewed (Chest x-ray shows no acute process) Critical Care Time Critical Care Time: Yes Total Critical Care Time: 31 Disposition Clinical Impression: Facial cellulitis, Sepsis Disposition: ADMITTED IP TO THIS [facility] Condition: Serious Is patient prescribed a controlled substance at d/c from ED?: No Referrals: Joss Loyola MD [Primary Care Provider] - 1-2 days Decision Time: 21:25
[2020-11-17] MEDS: SODIUM CHLORIDE 0.9% 500 ML 500 ML IV SCH ×2 (19:54→20:25)
[2020-11-17 20:13] LABS: Basophils # (A) 0.1 k/uL (0-0.2); Basophils % (A) 1 %; Eosinophils # (A) 0.1 k/uL (0-0.7); Eosinophils % (A) 0 %; HCT 42.3 % (39.0-53.0); HGB 14.8 gm/dL (13.0-17.5); Lymphocytes # (A) 1.1 k/uL (1.0-4.8); Lymphocytes % (A) 7 %; MCH 33.3 pg (25.0-35.0); MCHC 35.1 g/dL (31.0-37.0); Mean Platelet Volume 6.8; Monocytes # (A) 0.7 k/uL (0-1.0); Monocytes % (A) 5 %; Neutrophils # (A) 13.1 k/uL (1.3-7.7); Neutrophils % (A) 84 %; Platelet Count 279 k/uL (150-450); RBC 4.45 m/uL (4.30-5.90); RDW 12.8 % (11.5-15.5); WBC 15.7 k/uL (3.8-10.6)
[2020-11-17 20:22] LABS: INR 0.9 (<1.2); Partial Thromboplastin Time 24.9 sec (22.0-30.0); Prothrombin Time 10.1 sec (9.0-12.0)
[2020-11-17 20:23] LABS: ALT 31 U/L (4-49); AST 28 U/L (17-59); African American GFR (CKD) >90 (>60 ml/min/1.73 sqM); Albumin 4.2 g/dL (3.5-5.0); Alkaline Phosphatase 90 U/L (38-126); Anion Gap 7 mmol/L; Blood Urea Nitrogen 16 mg/dL (9-20); Calcium 9.3 mg/dL (8.4-10.2); Carbon Dioxide 22 mmol/L (22-30); Chloride 106 mmol/L (98-107); Glucose 115 mg/dL (74-99); Non-African American GFR(CKD) >90 (>60 ml/min/1.73 sqM); Sodium 135 mmol/L (137-145); Total Bilirubin 0.4 mg/dL (0.2-1.3)
--- NOTE | 2020-11-17 20:25 | XR ---
EXAMINATION TYPE: XR chest 2V DATE OF EXAM: 11/17/2020 20:19 COMPARISON: Chest radiograph 06/27/2018 HISTORY: Neck and facial swelling TECHNIQUE: Frontal and lateral views of the chest are obtained. FINDINGS: There is no focal air space opacity, pleural effusion, or pneumothorax seen. The cardiac silhouette size is within normal limits. The osseous structures are intact. IMPRESSION: No acute cardiopulmonary process.
--- NOTE | 2020-11-17 20:44 | CT ---
EXAMINATION TYPE: CT facial bones w con DATE OF EXAM: 11/17/2020 COMPARISON: None available HISTORY: left sided facial swelling CT DLP: 470.9 mGycm Automated exposure control for dose reduction was used. CONTRAST: CT scan of the facial bones is performed with IV Contrast, patient injected with 100 mL of Isovue 300 . TECHNIQUE: CT scan of the sinuses is performed without contrast, axial images are obtained, coronal r eformatted images are also reviewed. FINDINGS: Mild subcutaneous soft tissue swelling over the left lateral face and parotid gland. No definite sial olith. Left parotid gland appears slightly hyperenhancing relative to the right. Diffuse thickening o f the rene of the left external auditory canal. No rim-enhancing fluid collections. Mildly prominent nodes associated with the left parotid gland; otherwise, no visualized pathologically enlarged upper cervical chain lymph nodes. Bilateral submandibular glands appear normal. The paranasal sinuses including the frontal, ethmoid, sphenoid, and maxillary sinuses bilaterally ar e well-aerated without abnormal opacification. The ostiomeatal complex is patent bilaterally on the coronal images. Visualized portion of mastoid air cells show no abnormal opacification. The globes are intact bilate rally. Partially visualized brain parenchyma appears unremarkable. IMPRESSION: 1. Mildly thickened rene of the left external auditory canal which may relate to otitis externa. Rec ommend direct visualization. 2. Mildly hyperenhancing left parotid gland with overlying soft tissue swelling and mildly prominent lymph nodes which may be reactive to the left otitis externa or can be seen with left parotitis
[2020-11-17] MEDS ORDERED: LEVOFLOXACIN 750MG-D5W PMX 750 MG in DEXTROSE/WATER 1 150ML.BAG IVPB STA (21:25)
[2020-11-17] MEDS ORDERED: SODIUM CHLORIDE 0.9% 1,000 ML IV STA ×2 (21:25)
[2020-11-17] MEDS ORDERED: NALOXONE 0.4 MG/ML 1 ML VIAL IV PRN (21:26)
[2020-11-17] MEDS: SODIUM CHLORIDE 0.9% 1,000 ML IV SCH (21:44)
--- NOTE | 2020-11-18 00:12 | P.HPIM ---
History of Present Illness H&P Date: 11/17/20 The patient is a 55-year-old male with a PMH of hyperlipidemia who presented to the emergency room with complaints of left facial pain and swelling. The patient reports that his symptoms started on Wednesday morning and gradually progressed. He reports associated fever and chills. Denied trauma to the area or any breaks in the skin or bug bites. Denied headaches or difficulty with chewing. Denied hearing loss. Denied recently swimming. He further denied chest pain, shortness of breath, nausea, vomiting, abdominal pain, diarrhea. In the emergency room a facial CT revealed findings consistent with otitis externa. EKG revealed normal sinus at [address]/T-wave changes noted as reviewed by me. Chest x-ray was unremarkable. Upon presentation, the patient was febrile at 101.8F, BP 109/72, pulse 95, and SpO2 98% on room air. Laboratory evaluation was remarkable for leukocytosis at 15.7, sodium 135, glucose 115, lactic acid 1.0,. Review of systems: Pertinent positives and negatives as discussed in HPI, a complete review of systems was performed and all other systems are negative. Physical examination: General: non toxic, no distress, appears at stated age, overweight Derm: Erythema involving the left auricle and extending anteriorly 3 cm with tenderness and swelling, no unusual ecchymoses, warm, dry Head: atraumatic, normocephalic, symmetric Eyes: EOMI, no lid lag, anicteric sclera, pupils equal round reactive to light ENT: Nose and ears atraumatic, no thrush, no pharyngeal erythema Neck: No thyromegaly, no cervical lymphadenopathy, trachea midline, supple Mouth: no lip lesion, mucus membranes moist Cardiovascular: S1S2 reg, no murmur, positive posterior tibial pulse bilateral, no edema, capillary refill less than 2 seconds Lungs: CTA bilateral, no rhonchi, no rales , no accessory muscle use Abdominal: soft, nontender to palpation, no guarding, no appreciable organomegaly, normal bowel sounds Ext: no gross muscle atrophy, muscle strength 5 out of 5 in all 4 extremities grossly, no contractures, Neuro: CN II-XI grossly intact, light touch intact all 4 extremities, finger to nose within normal limits, Psych: Alert, oriented, appropriate affect Assessment/plan Sepsis secondary to auricular perichondritis -Continue with Levaquin and clindamycin for now -IV fluids -ENT consulted -Area of erythema marked -Follow blood cultures Chronic conditions: Hyperlipidemia -Continue with home meds DVT prophylaxis -Heparin subq The patient is admitted with an anticipated less than 2 midnight stay for evaluation of sepsis CODE STATUS: Full Code Discussed with: Patient Anticipated discharge date: in am Anticipated discharge place: Home Past Medical History Past Medical History: Hyperlipidemia Additional Past Medical History / Comment(s): Bilateral tinnitis. History of Any Multi-Drug Resistant Organisms: None Reported Past Surgical History: Cholecystectomy, Tonsillectomy Past Anesthesia/Blood Transfusion Reactions: No Reported Reaction Additional Past Anesthesia/Blood Transfusion Reaction / Comment(s): Pt has never had general anesthesia or spinal anesthesia. Past Psychological History: No Psychological Hx Reported Smoking Status: Light tobacco smoker Past Alcohol Use History: Occasional Additional Past Alcohol Use History / Comment(s): Pt states he has been smoking for around 35 years but for the last 10 years he is a very light smoker and does not smoke every day. States he just smokes sometimes. Past Drug Use History: None Reported - Past Family History Father Family Medical History: Coronary Artery Disease (CAD) Additional Family Medical History / Comment(s): Father has cardiac stents. Father to have open heart surgery wednesday. Mother Family Medical History: Congestive Heart Failure (CHF) Additional Family Medical History / Comment(s): Mother of CHF at the age of 54 yrs. Medications and Allergies Home Medications Medication Instructions Recorded Confirmed Type Aspirin [Adult Low Dose Aspirin EC] 81 mg PO HS 09/29/16 11/17/20 History Atorvastatin [Lipitor] 20 mg PO HS 09/29/16 11/17/20 History Allergies Allergy/AdvReac Type Severity Reaction Status Date / Time No Known Allergies Allergy Verified 11/17/20 20:07 Physical Exam Vitals: Vital Signs Temp Pulse Pulse Resp BP BP Pulse Ox 11/17/20 22:15 98.1 F 80 16 132/69 96 11/17/20 21:11 89 16 97 11/17/20 20:46 100.5 F H 87 16 103/67 96 11/17/20 19:21 101.8 F H 95 20 109/72 98 Intake and Output 11/17/20 11/17/20 11/18/20 14:59 22:59 06:59 Other: Weight 92.986 kg Results CBC & Chem 7: 11/17/20 19:49 11/17/20 19:49 Labs: Abnormal Lab Results - Last 24 Hours (Table) 11/17/20 11/17/20 Range/Units 19:49 19:49 WBC 15.7 H (3.8-10.6) k/uL Neutrophils # 13.1 H (1.3-7.7) k/uL Sodium 135 L (137-145) mmol/L Glucose 115 H (74-99) mg/dL Thrombosis Risk Factor Assmnt - Choose All That Apply Any of the Below Risk Factors Present?: Yes Each Factor Represents 1 point: Age 41-60 years Other Risk Factors: No Other congenital or acquired thrombophilia - If yes, enter type in comment: No Thrombosis Risk Factor Assessment Total Risk Factor Score: 1 Thrombosis Risk Factor Assessment Level: Low Risk
[2020-11-18] MEDS: SODIUM CHLORIDE 0.9% 1,000 ML IV SCH ×3 (05:37→16:36)
[2020-11-18 07:04] LABS: Basophils # (A) 0.1 k/uL (0-0.2); Basophils % (A) 1 %; Eosinophils # (A) 0.1 k/uL (0-0.7); Eosinophils % (A) 1 %; HCT 40.8 % (39.0-53.0); HGB 13.9 gm/dL (13.0-17.5); Lymphocytes # (A) 1.7 k/uL (1.0-4.8); Lymphocytes % (A) 16 %; MCH 33.2 pg (25.0-35.0); MCHC 34.2 g/dL (31.0-37.0); MCV 97.1 fL (80.0-100.0); Monocytes % (A) 9 %; Neutrophils # (A) 7.9 k/uL (1.3-7.7); Neutrophils % (A) 70 %; Platelet Count 232 k/uL (150-450); RDW 12.8 % (11.5-15.5); WBC 11.2 k/uL (3.8-10.6)
[2020-11-18] MEDS ORDERED: CLINDAMYCIN 600 MG in DEXTROSE 5% IN WATER 50 ML IVPB SCH ×4 (08:00)
--- NOTE | 2020-11-18 14:25 | P.PN ---
Subjective Progress Note Date: 11/18/20 No new complaints today. Ongoing facial cellulitis and otitis externa. Pending ENT evaluation. Objective - Vital Signs Vital signs: Vital Signs Temp 99.1 F 11/18/20 07:00 Pulse 79 11/18/20 07:00 Resp 16 11/18/20 07:00 BP 112/78 11/18/20 07:00 Pulse Ox 97 11/18/20 07:00 Intake & Output 11/17/20 11/18/20 11/18/20 18:59 06:59 18:59 Intake Total 500 Balance 500 Weight 92.986 kg Intake: Oral 500 Other: # Voids 2 - Exam Gen: awake, alert HEENT: normocephalic, atraumatic, good hearing acuity, moist mucous membranes, significant left sided facial swelling, erythema, auricular swelling, erythema Resp: good air exchange, breathing comfortably with no accessory muscle use CVS: good distal perfusion x 4, GI: soft, NTTP, ND : no SPT, no CVAT, pierce catheter not present MSK: no pitting edema, no clubbing Neuro: non-focal, moving all extremities Psych: cooperative, euthymic mood - Labs CBC & Chem 7: 11/18/20 05:30 11/17/20 19:49 Labs: Abnormal Lab Results - Last 24 Hours (Table) 11/17/20 11/17/20 11/18/20 Range/Units 19:49 19:49 05:30 WBC 15.7 H 11.2 H (3.8-10.6) k/uL RBC 4.20 L (4.30-5.90) m/uL Neutrophils # 13.1 H 7.9 H (1.3-7.7) k/uL Sodium 135 L (137-145) mmol/L Glucose 115 H (74-99) mg/dL Assessment and Plan Assessment: Sepsis secondary to auricular perichondritis, otitis externa, and facial cellulitis -Continue with Levaquin and clindamycin for now -IV fluids -ENT, ID consulted -Area of erythema marked -Follow blood cultures Chronic conditions: Hyperlipidemia -Continue with home meds DVT prophylaxis -Heparin subq The patient is admitted with an anticipated less than 2 midnight stay for evaluation of sepsis CODE STATUS: Full Code Discussed with: Patient Anticipated discharge date: in am Anticipated discharge place: Home
[2020-11-18] MEDS: ACETAMINOPHEN TAB 325 MG TAB PO PRN (15:04)
[2020-11-18] MEDS ORDERED: LEVOFLOXACIN 750MG-D5W PMX 750 MG in DEXTROSE/WATER 1 150ML.BAG IVPB SCH (21:00)
--- NOTE | 2020-11-18 22:57 | P.CONS ---
History of Present Illness - Reason for Consult Consult date: 11/18/20 facial cellulitis Requesting physician: Gilmar Quintanilla - Chief Complaint fever and weakness x 2 days - History of Present Illness Patient is a 55-year-old male who was brought into the ER last night for evaluation of fever and fatigue patient said that has been going on for about 2 days patient noticed to be more restless and sleepy and the patient also noticed to have a swelling and redness of the left ear and the left side of his face patient denies having any history of any trauma patient has been complaining of pain to the left side of the face and left external ear to be throbbing intensity 5-6 over 10 and no radiation with significant swelling and redness but no drainage denies have any difficulty hearing on the left ear did have fever with chills on arrival to the ER patient did have a fever of 101.8 F no significant tachycardia or hypoxemia was reported patient did have white count of 15 point 7 repeat is 11.2 today with a BUN of 12 creatinine 0.86 patient did have blood cultures currently pending patient did have a facial CT with tissues mildly thickened rene of the left external auditory canal with concern for otitis externa and reactive lymph nodes patient was started on clindamycin infectious disease was consulted for further management of antibiotic therapy. Review of Systems Positive point has been mentioned in the HPI rest of the systems are negative Past Medical History Past Medical History: Hyperlipidemia Additional Past Medical History / Comment(s): Bilateral tinnitis. History of Any Multi-Drug Resistant Organisms: None Reported Past Surgical History: Cholecystectomy, Tonsillectomy Past Anesthesia/Blood Transfusion Reactions: No Reported Reaction Additional Past Anesthesia/Blood Transfusion Reaction / Comm: Pt has never had general anesthesia or spinal anesthesia. Past Psychological History: No Psychological Hx Reported Smoking Status: Light tobacco smoker Past Alcohol Use History: Occasional Additional Past Alcohol Use History / Comment(s): Pt states he has been smoking for around 35 years but for the last 10 years he is a very light smoker and does not smoke every day. States he just smokes sometimes. Past Drug Use History: None Reported - Past Family History Father Family Medical History: Coronary Artery Disease (CAD) Additional Family Medical History / Comment(s): Father has cardiac stents. Father to have open heart surgery wednesday. Mother Family Medical History: Congestive Heart Failure (CHF) Additional Family Medical History / Comment(s): Mother of CHF at the age of 54 yrs. Medications and Allergies Home Medications Medication Instructions Recorded Confirmed Type Aspirin [Adult Low Dose Aspirin EC] 81 mg PO HS 09/29/16 11/17/20 History Atorvastatin [Lipitor] 20 mg PO HS 09/29/16 11/17/20 History Allergies Allergy/AdvReac Type Severity Reaction Status Date / Time No Known Allergies Allergy Verified 11/17/20 20:07 Physical Exam Vitals: Vital Signs Temp Pulse Pulse Resp BP BP Pulse Ox 11/18/20 07:00 99.1 F 79 16 112/78 97 11/18/20 02:00 98.1 F 66 16 98/53 98 11/17/20 22:15 98.1 F 80 16 132/69 96 11/17/20 21:11 89 16 97 11/17/20 20:46 100.5 F H 87 16 103/67 96 11/17/20 19:21 101.8 F H 95 20 109/72 98 Intake and Output 11/17/20 11/18/20 11/18/20 22:59 06:59 14:59 Intake Total 500 Balance 500 Intake: Oral 500 Other: # Voids 2 Weight 92.986 kg GENERAL DESCRIPTION: Middle-aged male lying in bed, no distress. No tachypnea or accessory muscle of respiration use. HEENT: Shows Pallor , no scleral icterus. Oral mucous membrane is dry. No pharyngeal erythema or thrush A left facial and external area with diffuse swelling and redness no fluctuation induration or drainage was noticed NECK: Trachea central, no thyromegaly. LUNGS: Unlabored breathing. Clear to auscultation anteriorly. No wheeze or crackle. HEART: S1, S2, regular rate and rhythm. No loud murmur ABDOMEN: Soft, no tenderness , guarding or rigidity, no organomegaly EXTREMITIES: No edema of feet. SKIN: No rash, no masses palpable. NEUROLOGICAL: The patient is awake, alert, oriented x3, mood and affect normal. Results CBC & Chem 7: 11/18/20 05:30 11/17/20 19:49 Labs: Abnormal Lab Results - Last 24 Hours (Table) 11/17/20 11/17/20 11/18/20 Range/Units 19:49 19:49 05:30 WBC 15.7 H 11.2 H (3.8-10.6) k/uL RBC 4.20 L (4.30-5.90) m/uL Neutrophils # 13.1 H 7.9 H (1.3-7.7) k/uL Sodium 135 L (137-145) mmol/L Glucose 115 H (74-99) mg/dL Assessment and Plan Assessment: 1-patient presented to hospital with sepsis and respiratory have a fever elevated white count source likely left-sided facial cellulitis and component of left otitis externa with no evidence of any purulence or underlying abscess likely from gram-positive skin marco a such as strep in this patient with no risk factor for MRSA infection (1) Otitis externa Current Visit: Yes Status: Acute Code(s): H60.90 - UNSPECIFIED OTITIS EXTERNA, UNSPECIFIED EAR SNOMED Code(s): 2488972 (2) Facial cellulitis Current Visit: Yes Status: Acute Code(s): L03.211 - CELLULITIS OF FACE SNOMED Code(s): 264790541 (3) Sepsis Current Visit: Yes Status: Acute Code(s): A41.9 - SEPSIS, UNSPECIFIED ORGANISM SNOMED Code(s): 99040775 Plan: 1-Erik the area of the redness 2-discontinue his clindamycin 3-start the patient cefazolin 2 g every 8 hour We will follow on clinical condition and cultures to further adjust medication if needed Thank you for this consultation we will follow the patient along with you Time with Patient: Greater than 30
[2020-11-19] MEDS: ACETAMINOPHEN TAB 325 MG TAB PO PRN (02:27)
[2020-11-19] MEDS: SODIUM CHLORIDE 0.9% 1,000 ML IV SCH ×3 (05:34→16:28)
[2020-11-19 09:20] LABS: Basophils # (A) 0.07 X 10*3/uL (0.00-0.10); Basophils % (A) 0.9 %; Eosinophils # (A) 0.25 X 10*3/uL (0.04-0.35); Eosinophils % (A) 3.1 %; HCT 38.7 % (39.6-50.0); HGB 13.1 g/dL (13.0-17.0); Lymphocytes # (A) 2.36 X 10*3/uL (0.90-5.00); Lymphocytes % (A) 29.1 %; MCH 32.7 pg (27.0-32.0); MCHC 33.9 g/dL (32.0-37.0); MCV 96.5 fL (80.0-97.0); Mean Platelet Volume 9.3 fL (9.5-12.2); Monocytes # (A) 1.12 X 10*3/uL (0.20-1.00); Monocytes % (A) 13.8 %; Neutrophils % (A) 52.9 %; Platelet Count 226 X 10*3/uL (140-440); RBC 4.01 X 10*6/uL (4.40-5.60); WBC 8.12 X 10*3/uL (4.50-10.00)
--- NOTE | 2020-11-19 14:13 | P.PN ---
Subjective Progress Note Date: 11/19/20 No new complaints. Cellulitis is improving overall. Objective - Vital Signs Vital signs: Vital Signs Temp 97.6 F 11/19/20 13:50 Pulse 51 L 11/19/20 13:50 Resp 16 11/19/20 13:50 BP 114/74 11/19/20 13:50 Pulse Ox 96 11/19/20 13:50 Intake & Output 11/18/20 11/19/20 11/19/20 18:59 06:59 18:59 Intake Total 1100 Balance 1100 Intake: Oral 1100 Other: Voiding Method Toilet Toilet # Voids 2 2 3 # Bowel Movements 0 - Exam Gen: awake, alert HEENT: normocephalic, atraumatic, good hearing acuity, moist mucous membranes, significant left sided facial swelling, erythema, auricular swelling, erythema Resp: good air exchange, breathing comfortably with no accessory muscle use CVS: good distal perfusion x 4, GI: soft, NTTP, ND : no SPT, no CVAT, pierce catheter not present MSK: no pitting edema, no clubbing Neuro: non-focal, moving all extremities Psych: cooperative, euthymic mood - Labs CBC & Chem 7: 11/19/20 04:25 11/17/20 19:49 Labs: Abnormal Lab Results - Last 24 Hours (Table) 11/19/20 11/19/20 Range/Units 04:25 04:25 RBC 4.01 L (4.40-5.60) X 10*6/uL Hct 38.7 L (39.6-50.0) % MCH 32.7 H (27.0-32.0) pg MPV 9.3 L (9.5-12.2) fL Monocytes # 1.12 H (0.20-1.00) X 10*3/uL C-Reactive Protein 4.0 H (0.0-0.8) mg/dL Microbiology - Last 24 Hours (Table) 11/17/20 19:49 Blood Culture - Preliminary Blood No Growth after 24 hours 11/17/20 19:49 Blood Culture - Preliminary Blood No Growth after 24 hours Assessment and Plan Assessment: Sepsis secondary to auricular perichondritis, otitis externa, and facial cellulitis -Continue with Levaquin and clindamycin for now -IV fluids -ENT, ID consulted -Area of erythema marked -Follow blood cultures Chronic conditions: Hyperlipidemia -Continue with home meds DVT prophylaxis -Heparin subq The patient is admitted with an anticipated less than 2 midnight stay for evaluation of sepsis CODE STATUS: Full Code Discussed with: Patient Anticipated discharge date: in am Anticipated discharge place: Home
--- NOTE | 2020-11-19 14:32 | PN ---
PROGRESS NOTE DATE OF SERVICE: 11/19/2020 REASON FOR FOLLOWUP: Left facial cellulitis and otitis externa. INTERVAL HISTORY: The patient is afebrile. The patient is breathing comfortably. Left facial swelling and redness has slightly decreased. No chest pain, shortness of breath or cough. No abdominal pain. No diarrhea. PHYSICAL EXAMINATION: Blood pressure 106/64, pulse of 68, temperature is 97.8. He is 96% on room air. General description is a middle-aged male lying in bed in no distress. HEENT examination: Left facial and swelling and redness has slightly decreased. Lungs: Unlabored breathing. Clear to auscultation anteriorly. Heart S1, S2. Regular rate and rhythm. Abdomen soft, no tenderness. LABS: Hemoglobin is 13.1, white count 8.12. DIAGNOSTIC IMPRESSION AND PLAN: Patient with left facial cellulitis and otitis externa clinical responding to the cefazolin. However, the patient still has significant cellulitis. Recommend keeping the patient on IV cefazolin for another 24 hours before transition to oral antibiotics. Continue supportive care. MMODL / IJN: [id number] /
[2020-11-20] MEDS: SODIUM CHLORIDE 0.9% 1,000 ML IV SCH ×2 (03:38→10:57)
--- NOTE | 2020-11-20 06:07 | CONS ---
CONSULTATION DATE OF THE CONSULTATION: November 19, 2020 REASON FOR CONSULTATION: Left facial cellulitis/sepsis. HISTORY OF PRESENT ILLNESS: The patient is a very pleasant 55-year-old male who states that approximately 3 or 4 days ago he developed pain and swelling on the top of his left ear. The pain became gradually worse and radiated down towards his face. There was swelling and redness. In addition, this patient stated that he felt quite tired,fatigued and that he ran a low-grade temperature. The discomfort interfered with his sleep and therefore the patient's took him to [facility] Emergency Room. He was seen by the emergency room physician and diagnosed with facial cellulitis. He was subsequently admitted for treatment with intravenous antibiotics. At the present time, the patient states that he is doing much better. PAST MEDICAL HISTORY: Past medical history reveals that he has no known allergies to medications. CURRENT MEDICATIONS: Include 1 baby aspirin daily, and Lipitor. REVIEW OF SYSTEMS: Positive with respect to the metabolic endocrine system and that the patient is known to have hypercholesterolemia. The remainder of review of systems is unremarkable. PHYSICAL EXAMINATION: This patient is a 55-year-old male who is alert, cooperative and well-oriented to time and place. He is in no acute distress at this time. HEENT examination: Patient is normocephalic. Examination right ear is unremarkable. Examination of left ear reveals no tenderness to insertion of the aural speculum. The external auditory canal. Tympanic membrane middle ear space appeared to be free of any fluid, infection or debris. Deep palpation of the patient's left pinna/ear reveals only slight tenderness. The patient has well demarcated area of erythema on the left face in the region of the left parotid gland. Palpation reveals only mild tenderness, but no fluctuance or discrete masses are noted. A CT scan performed of the patient's face only noted significant edema/cellulitis of the left facial scan of the left ear but no abscess. Deep palpation of the neck did not reveal any neck masses or lymphadenopathy. Pupils equal, round, and reactive to light and accommodation. Extraocular movements within normal limits. Intranasal examination reveals moderate to severe septal deviation with compensatory hypertrophy of inferior turbinates and a moderate amount of mucus on the mucous membrane draining down the posterior pharynx. Cranial nerves 2 through 12 and remainder of the head and neck exam are within normal limits. CHEST/CARDIOVASCULAR: Both lung walsh are clear to percussion and auscultation. The patient is in regular sinus rhythm. S1 and S2 are present. No murmurs S3s or S4s. Peripheral pulses are bilaterally symmetrical. ABDOMEN: There is no evident masses, megaly or tenderness. Abdomen: Soft. SKIN is unremarkable. The remainder of physical exam is unremarkable. ASSESSMENT: Left facial cellulitis, with extension to the left ear. Currently resolving nicely on intravenous antibiotics. PLAN: I suspect the patient's cellulitis was initiated by an insect bite. I have seen this happen when the patient has a small insect bite on a part of the body which becomes infected and subsequently the patient develops local cellulitis which can spread. Certainly, the history of this the patient experiencing pain beginning with the tip at the top of the left ear and gradually extending to involve the entire left ear and the left facial area would be consistent with a spreading type with cellulitis. There is no evidence of any abscess. The patient is responding quite nicely to the intravenous antibiotics. From ENT standpoint, I feel that he could be discharged on a 10 day course of an oral antibiotic such as Cleocin 300 mg p.o. t.i.d. x10 days or oral Augmentin 875 b.i.d. x10 days. I do not need to see this patient for followup in my office because he can follow up with his family physician. I want to take this opportunity to thank you for allowing me to assist in the care of your patient. If I can be of any further assistance, please feel free to call my office. RHONDA / LUCASN: [id number] / MTDD
[2020-11-20 08:15] VITALS: BP 109/69; PULSE 66; RESP 18; TEMP 97.6
--- NOTE | 2020-11-20 12:46 | P.DS ---
Providers Date of admission: 11/17/20 21:28 Expected date of discharge: 11/20/20 Attending physician: Gilmar Quintanilla MD Consults: 11/17/20 21:27 Consult Physician Urgent Consulting Provider: Tristian Hwang Consult Reason/Comments: Evaluate facial cellulitis: Perichondritis vs parotitis. Do you want consulting provider notified?: Yes Consult Physician Urgent Consulting Provider: Ritika Cifuentes Consult Reason/Comments: Sepsis, facial cellulitis Do you want consulting provider notified?: Yes Primary care physician: Darrick Linarescaitie [facility] Course: Discharge Diagnosis: Sepsis secondary to auricular perichondritis, otitis externa, and facial cellulitis Hyperlipidemia Hospital Course: Patient is a very pleasant 55-year-old male with a past medical history of hyperlipidemia. He presented to the emergency department on 11/17/20 with a chief complaint of left facial pain and swelling. Patient was found to have sepsis secondary to auricular perichondritis, otitis externa, and facial cellulitis resulting in admission under our services with consultation to ENT and infectious disease. Initially patient was found to have leukocytosis with WBC count of 15.7, this has resolved after administration of IV antibiotics and is now 8.12. Bood cultures obtained negative for growth 48 hours. CRP 4.0. patient was treated with IV antibiotics cefazolin and is stable for discharge home at this time. patient being discharged home on 10 day course of cephalexin and to follow up as directed with PCP, ENT specialist, and infectious disease. Physical exam: Patient seen and examined at bedside. Has minimal erythema to left upper cheek and swelling has nearly resolved. patient denies having any complaints at this time including headache, lightheadedness, dizziness, changes in vision or hearing, chest pain or palpitations, cough or congestion, shortness of breath, or any other complaints or concerns at this time. Patient stable for discharge home. Vital signs reviewed and stable. General: Nontoxic, no distress and appears stated age. Derm: Skin warm and dry, mild erythema and edema to left upper cheek and left ear. Head: Atraumatic, normocephalic and symmetric. Eyes: EOMs intact, no lid lag, and anicteric sclera Mouth: no lip lesions, mucus membranes moist Cardiovascular: regular rate and rhythm with normal S1S2, no murmur, positive posterior tibial pulses bilaterally, and cap refill < 2 seconds. Lungs: Respirations even, regular, and unlabored on room air. Lungs CTA bilaterally, no rhonchi, no rales, no wheezing, and no accessory muscle usage. Abdominal: soft, nontender to palpation, no guarding, no appreciable organomegaly Ext: ROM intact. No gross muscle atrophy, no edema, no contractures Neuro: Speech clear, face symmetrical and CN II-XII grossly intact with no noted focal neuro deficits Psych: Alert and oriented to person, place, time, and situation. Appropriate and pleasant affect. A total of 45 minutes of time were spent preparing this complex discharge summary. Patient Condition at Discharge: Stable Plan - Discharge Summary Discharge Rx Participant: No New Discharge Prescriptions: New Cephalexin [Keflex] 500 mg PO Q6HR 10 Days #40 cap No Action Aspirin [Adult Low Dose Aspirin EC] 81 mg PO HS Atorvastatin [Lipitor] 20 mg PO HS Discharge Medication List Aspirin [Adult Low Dose Aspirin EC] 81 mg PO HS 09/29/16 [History] Atorvastatin [Lipitor] 20 mg PO HS 09/29/16 [History] Cephalexin [Keflex] 500 mg PO Q6HR 10 Days #40 cap 11/20/20 [Rx] Follow up Appointment(s)/Referral(s): Joss Loyola MD [Primary Care Provider] - 1-2 days Tristian Hwang MD [STAFF PHYSICIAN] - 2 Weeks Ritika Cifuentes MD [STAFF PHYSICIAN] - 2 Weeks Activity/Diet/Wound Care/Special Instructions: Activity: As tolerated. Special Instructions: Please be sure to take medications exactly as prescribed without missing any doses and complete entire course. It is important to follow-up with your PCP, Dr. Loyola in 1-2 days and infectious disease-Dr. Cifuentes in 2 weeks, and ENT specialist Dr. Hwang in 2 weeks. Thank you for allowing us to participate in your care, it was a pleasure having you for our patient!! Discharge Disposition: HOME SELF-CARE
--- NOTE | 2020-11-20 14:18 | PN ---
PROGRESS NOTE DATE OF SERVICE: 11/20/2020 REASON FOR FOLLOWUP: 1. Left facial cellulitis. 2. Left otitis externa. INTERVAL HISTORY: The patient is afebrile. The patient is breathing comfortably. Left ear pain and swelling has improved. Currently no drainage. No chest pain, shortness of breath or cough. No abdominal pain or diarrhea. PHYSICAL EXAMINATION: Blood pressure 109/69, pulse of 60. Temperature is 97.6. He is 97% on room air. General description is a middle-aged male lying in bed in no distress. HEENT examination: Left facial and external ear swelling and redness has much improved. Lungs: Unlabored breathing, clear to auscultation anteriorly. Heart: S1, S2. Regular rate and rhythm. Abdomen: Soft, no tenderness. LABS: No new labs have been obtained. Blood culture negative. DIAGNOSTIC IMPRESSION AND PLAN: Patient with left otitis externa and left facial cellulitis. Overall improvement with cefazolin to finish therapy with oral Keflex. Prescription sent to the pharmacy. Close outpatient followup. MMODL / IJN: [id number] /
== END 2020-11-20 13:02 | disposition home or self-care (01) ==
LOC: EC 19:19 → 6NMEDSUR 21:28
PROVIDERS: ADMIT Internal Medicine; ATTEND Internal Medicine
DX: L03.211 Cellulitis of face (principal); H61.009 Unspecified perichondritis of external ear, unspecified ear; A41.9 Sepsis, unspecified organism; E78.5 Hyperlipidemia, unspecified; H60.92 Unspecified otitis externa, left ear; F17.200 Nicotine dependence, unspecified, uncomplicated; Z79.82 Long term (current) use of aspirin; Z79.899 Other long term (current) drug therapy; Z90.49 Acquired absence of other specified parts of digestive tract; Z82.49 Family history of ischemic heart disease and other diseases of the circulatory system
CPT/HCPCS: 96361 ×4; 96366 ×4; 96367; 96368; 96365; 99291; 36415; 93005; 80053; 83605; 85025 ×3; 85610; 85730; 86140; 87040; 71046; 70487; G0378 ×4; J0690 ×3; J1956 ×2; Q9967

== ENCOUNTER 2021-03-26 09:12 | Day surgery (SDC) | payer BC ==
[~2021-03-26 09:12] MED LIST: LACTATED RINGERS 1,000 ML IV SCH; LIDOCAINE 1% (10MG/ML) FOR IV START INTRADERMA PRN
[2021-03-26 10:07] VITALS: RESP 16; TEMP 96.8
[2021-03-26] MEDS ORDERED: PROPOFOL 10 MG/ML 20 ML VIAL IV ONE (10:46)
--- NOTE | 2021-03-26 10:59 | P.PCN ---
Date of Procedure: 03/26/21 Procedure(s) Performed: BRIEF HISTORY: Patient is a 56-year-old pleasant white male scheduled for an elective colonoscopy as a part of screening for colorectal neoplasia PROCEDURE PERFORMED: Colonoscopy. PREOPERATIVE DIAGNOSIS: Screening for colon cancer. IV sedation per Anesthesia. PROCEDURE: After informed consent was obtained, the patient, was brought into the endoscopy unit. IV sedation was administered by Anesthesia under continuous monitoring. Digital rectal examination was normal. Initially the Olympus CF-160 flexible video colonoscope was then inserted in the rectum, gradually advanced into the cecum without any difficulty. Careful examination was performed as the scope was gradually being withdrawn. Ileocecal valve and the appendiceal orifice were visualized and appeared normal. Prep was excellent. Mucosa of the cecum, ascending colon, transverse colon, descending colon, sigmoid colon, and rectum appeared normal. Retroflexion was performed in the rectum and no lesions were seen. The patient tolerated the procedure well. IMPRESSION: Normal-appearing colon from rectum to cecum with no evidence of colorectal neoplasia . RECOMMENDATIONS: Findings of this examination were discussed with the patient as well as his family. he was advised to have a repeat screening colonoscopy in 10 years. .
[2021-03-26 11:30] VITALS: BP 100/72; PULSE 65
== END 2021-03-26 11:39 | disposition home or self-care (01) ==
LOC: ORWHC2ENDO 09:12
PROVIDERS: ATTEND Internal Medicine Gastroenterology
DX: Z12.11 Encounter for screening for malignant neoplasm of colon (principal); G47.33 Obstructive sleep apnea (adult) (pediatric); F17.210 Nicotine dependence, cigarettes, uncomplicated; E78.5 Hyperlipidemia, unspecified; Z79.899 Other long term (current) drug therapy
CPT/HCPCS: J2704; G0121